=== PATIENT | male | born 1955 | race Caucasian/White ===

== ENCOUNTER 2017-12-19 12:20 | Emergency (ER) | payer OTHER ==
[2017-12-19 13:12] LABS: ABSOLUTE LYMPHOCYTES (AUTO) 0.9 10^3/uL (0.5-4.7); ABSOLUTE MONOCYTES (AUTO) 0.6 10^3/uL (0.1-1.4); ABSOLUTE NEUT (AUTO) 12.2 10^3/uL (1.7-8.2); BASOPHILS % (AUTO) 0.2 % (0-2); HEMATOCRIT 51.2 % (37.9-51.0); HEMOGLOBIN 17.3 g/dL (13.5-17.0); LYMPHOCYTES % (AUTO) 6.2 % (13-45); MEAN CORPUSCULAR HGB CONC 33.9 g/dL (32.0-36.0); MEAN CORPUSCULAR VOLUME 95 fl (80-97); MONOCYTES % (AUTO) 4.7 % (3-13); PLATELET COUNT 264 10^3/uL (150-450); RED BLOOD COUNT 5.41 10^6/uL (4.35-5.55); RED CELL DISTRIBUTION WIDTH 14.4 % (11.5-14.0); SEGMENTED NEUTROPHILS % (AUTO) 88.9 % (42-78); TOTAL CELLS COUNTED % (AUTO) 100 %; WHITE BLOOD COUNT 13.7 10^3/uL (4.0-10.5)
[2017-12-19] MEDS ORDERED: DIPH/PERTUSS(ACELL)/TETANUS VAC/PF 0.5 ML SYR (>=10YO) IM ONE (13:33)
--- NOTE | 2017-12-19 13:33 | ER Document Report ---
ED Blood Sugar Problem - General Chief Complaint: Low Blood Sugar Stated Complaint: BLOOD SUGAR PROBLEM Time Seen by Provider: 12/19/17 13:28 Information source: Patient Notes: 62-year-old male with past medical history as recorded who presents today being unresponsive according to the family and EMS. The patient's sister and called EMS. Patient is an insulin-dependent diabetic. He states he has been out of his test strips the last 3 days so has not been able to check his sugar. He states when he woke up this morning he did feel little diaphoretic but was unable to take his sugar. He ate some grits and did take his morning insulin. He then started to become slightly unresponsive with some snoring respirations according to family. EMS states when they provided 500 cc of D10 solution the patient became oriented 4. The patient denies any headache, nausea, vomiting, chest pain, weakness or numbness. He does state he fell and hit his head around 2 days ago. He denies loss of consciousness or vomiting. He denies any change in his medicines including his insulin regimen. TRAVEL OUTSIDE OF THE [place] IN LAST 30 DAYS: No - HPI Onset: Other - See above Onset/Duration: Sudden Quality of pain: No pain Severity: Mild Pain Level: 0 Associated symptoms: Other - See above Similar symptoms previously: No Recently seen / treated by doctor: No - Related Data Allergies/Adverse Reactions: No Known Allergies Allergy (Verified 12/19/17 12:35) Past Medical History - General Information source: Patient - Social History Smoking Status: Former Smoker Cigarette use (# per day): No Chew tobacco use (# tins/day): No Smoking Education Provided: No Frequency of alcohol use: None Drug Abuse: None Family History: Reviewed & Not Pertinent Patient has suicidal ideation: No Patient has homicidal ideation: No - Past Medical History Cardiac Medical History: Reports: Hx Hypertension Endocrine Medical History: Reports: Hx Diabetes Mellitus Type 2 Renal/ Medical History: Denies: Hx Peritoneal Dialysis Review of Systems - Review of Systems Constitutional: denies: Fever EENT: denies: Eye discharge, Nose discharge Cardiovascular: denies: Chest pain, Palpitations Respiratory: denies: Short of breath Gastrointestinal: denies: Vomiting Genitourinary: denies: Dysuria Musculoskeletal: denies: Leg swelling Skin: Other - no hives. denies: Rash Neurological/Psychological: Other - no slurred speech -: Yes All other systems reviewed and negative Physical Exam - Vital signs Vitals: Temp Pulse Resp BP Pulse Ox 97.6 F 62 18 139/77 H 96 12/19/17 12:12/19/17 12:12/19/17 12:12/19/17 12:12/19/17 12:25 Notes: Reviewed vital signs and nursing note as charted by RN. CONSTITUTIONAL: Alert and oriented and responds appropriately to questions. Well -appearing; well-nourished HEAD: Normocephalic; atraumatic EYES: PERRL; full extraocular range of motion. No nystagmus notedSee above ENT: Normal nose; no rhinorrhea; no carotid bruits NECK: Supple without meningismus; non-tender CARD: Regular rate and rhythm; no murmurs RESP: Normal chest excursion without splinting or tachypnea; breath sounds clear and equal bilaterally ABD/GI: Normal bowel sounds; non-distended; soft, non-tender BACK: The back appears normal and is non-tender to palpation EXT: Normal ROM in all joints; non-tender to palpation; abrasions to bilateral knees without tenderness with full range of motion, no edema SKIN: See above NEURO: CN II through XII are intact. 5 out of 5 bilateral upper and lower extremity strength with sensation intact to light touch PSYCH: The patient's mood and manner are appropriate. Grooming and personal hygiene are appropriate. Course - Re-evaluation Re-evalutation: 12/19/17 13:33 Given the history and physical examination we will order basic labs, cardiac labs, every hour Accu-Cheks, provide fluids, and given the recent fall obtain a CT scan of the head. We will update the patient's tetanus and clean and dressed the patient's abrasions to his knees. 12/19/17 13:37 EKG shows a heart of 58, normal sinus rhythm, left axis deviation, no obvious ST elevation or depression. 12/19/17 14:[address] imaging as recorded. We are still awaiting the troponin. We have fed the patient. Every hour Accu-Cheks are being performed. - Vital Signs Vital signs: Temp Pulse Resp BP Pulse Ox 97.6 F 62 18 139/77 H 96 12/19/17 12:25 12/19/17 12:25 12/19/17 12:25 12/19/17 12:25 12/19/17 12:25 - Laboratory Result Diagrams: 12/19/17 13:03 12/19/17 14:00 Laboratory results interpreted by me: 12/19/17 12/19/17 12/19/17 13:03 14:00 16:14 WBC 13.7 H Hgb 17.3 H Hct 51.2 H RDW 14.4 H Seg Neutrophils % 88.9 H Lymphocytes % 6.2 L Absolute Neutrophils 12.2 H BUN 29 H Est GFR (Non-Af Amer) 59 L POC Glucose 176 H Direct Bilirubin 0.5 H Discharge - Discharge Clinical Impression: Hypoglycemia Altered mental status, unspecified Qualifiers: Altered mental status type: unspecified Qualified Code(s): R41.82 - Altered mental status, unspecified Accidental fall Qualifiers: Encounter type: initial encounter Qualified Code(s): W19.XXXA - Unspecified fall, initial encounter Closed head injury Qualifiers: Encounter type: initial encounter Qualified Code(s): S09.90XA - Unspecified injury of head, initial encounter Condition: Good Disposition: HOME, SELF-CARE Additional Instructions: Come back immediately with any weakness or numbness, change in mental status, fevers or vomiting, chest pain, excessively high or low sugars, or any other acute problems. Please make sure that you check your sugars regularly and please follow-up with your primary care physician P Prescriptions: Blood Sugar Diagnostic [Glucose Test Strip] 1 each BID #60 strip Referrals: ELISSA JONES MD [Primary Care Provider] - Follow up as needed
--- NOTE | 2017-12-19 13:53 | RADIOLOGY REPORT (SQ) ---
EXAM DESCRIPTION: CT HEAD WITHOUT COMPLETED DATE/TIME: 12/19/2017 1:45 pm REASON FOR STUDY: 2, fall COMPARISON: None. TECHNIQUE: Axial images acquired through the brain without intravenous contrast. Images reviewed wi th bone, brain and subdural windows. Images stored on PACS. All CT scanners at this facility use dose modulation, iterative reconstruction, and/or weight based d osing when appropriate to reduce radiation dose to as low as reasonably achievable (ALARA). [facility]: Dose Right [facility]: CareDose [facility]: Dose Right [facility]: Teradose 4D [facility]: rubberit RADIATION DOSE: mGy. LIMITATIONS: None. FINDINGS: VENTRICLES: Normal size and contour. CEREBRUM: No masses. No hemorrhage. No midline shift. No evidence for acute infarction. Normal gra y/white matter differentiation. No areas of low density in the white matter. CEREBELLUM: No masses. No hemorrhage. No alteration of density. No evidence for acute infarction. EXTRAAXIAL SPACES: No fluid collections. No masses. ORBITS AND GLOBE: No intra- or extraconal masses. Normal contour of globe without masses. CALVARIUM: No fracture. PARANASAL SINUSES: No fluid or mucosal thickening. SOFT TISSUES: Partially calcified 2.2 CM soft tissue mass within the subcutaneous fat right posterior scalp seen on series 2, image 13. OTHER: No other significant finding. IMPRESSION: NO ACUTE INTRACRANIAL PROCESS OR FRACTURE. PARTIALLY CALCIFIED 2.2 CM SOFT TISSUE MASS WITHIN THE SUBCUTANEOUS FAT RIGHT SCALP. FINDINGS ARE NO NSPECIFIC HOWEVER MOST LIKELY REPRESENTS BENIGN NEOPLASTIC PROCESS. FOLLOW-UP SURGICAL CONSULTATION RECOMMENDED. EVIDENCE OF ACUTE STROKE: NO. COMMENT: Quality ID # [id number]: Final reports with documentation of one or more dose reduction techniques (e.g., Automated exposure control, adjustment of the mA and/or kV according to patient size, use of iterative reconstruction technique) TECHNICAL DOCUMENTATION: JOB ID: [id number] [employer]- All Rights Reserved Reading location - IP/workstation name: [email or web address]
[2017-12-19 14:37] LABS: ALANINE AMINOTRANSFERASE 44 U/L (21-72); ALBUMIN 3.9 g/dL (3.5-5.0); ALKALINE PHOSPHATASE 111 U/L (38-126); ANION GAP 15 (5-19); ASPARTATE AMINO TRANSFERASE 47 U/L (17-59); BILIRUBIN,DIRECT 0.5 mg/dL (0.0-0.4); BILIRUBIN,TOTAL 0.6 mg/dL (0.2-1.3); BLOOD UREA NITROGEN 29 mg/dL (7-20); CALCIUM 9.3 mg/dL (8.4-10.2); CARBON DIOXIDE 28 mmol/L (22-30); CHLORIDE 98 mmol/L (98-107); GLUCOSE 89 mg/dL (75-110); POTASSIUM 4.5 mmol/L (3.6-5.0); SODIUM 141.2 mmol/L (137-145); TOTAL PROTEIN 7.5 g/dL (6.3-8.2)
--- NOTE | 2017-12-19 16:07 | EKG REPORT ---
SEVERITY:- BORDERLINE ECG - SINUS RHYTHM IVCD : Confirmed by: Del Kennedy MD 19-Dec-2017 16:07:32
--- NOTE | 2017-12-19 16:17 | RADIOLOGY REPORT (SQ) ---
EXAM DESCRIPTION: PELVIS AP COMPLETED DATE/TIME: 12/19/2017 4:06 pm REASON FOR STUDY: 2, fall COMPARISON: None. NUMBER OF VIEWS: One view TECHNIQUE: AP Pelvis LIMITATIONS: None. FINDINGS: MINERALIZATION: Normal. HIPS: No acute fracture or dislocation. No worrisome bone lesions. PELVIS AND SACRUM: No acute fracture or dislocation. No worrisome bone lesions. PUBIS AND ISCHIUM: No acute fracture. LOWER LUMBAR SPINE: No significant findings as visualized. SOFT TISSUES: No findings. OTHER: No other significant finding. IMPRESSION: NEGATIVE STUDY OF THE PELVIS. TECHNICAL DOCUMENTATION: JOB ID: [id number] [email or web address]- All Rights Reserved Reading location - IP/workstation name: [email or web address]
--- NOTE | 2017-12-19 16:18 | RADIOLOGY REPORT (SQ) ---
EXAM DESCRIPTION: FEMUR LEFT COMPLETED DATE/TIME: 12/19/2017 4:06 pm REASON FOR STUDY: 2, fall COMPARISON: None. NUMBER OF VIEWS: Two views. TECHNIQUE: Two radiographic images acquired of the left femur to include hip and knee in at least on e projection. LIMITATIONS: None. FINDINGS: MINERALIZATION: Normal. BONES: No acute fracture. No worrisome bone lesions. Degenerative changes of the knee. SOFT TISSUES: No obvious swelling or foreign body. OTHER: No other significant finding. IMPRESSION: No acute fracture. TECHNICAL DOCUMENTATION: JOB ID: [id number] [employer]- All Rights Reserved Reading location - IP/workstation name: [email or web address]
[2017-12-19 18:08] VITALS: BP 112/59
== END 2017-12-19 18:00 | disposition home or self-care (01) ==
LOC: ER 12:20
DX: S09.90XA Unspecified injury of head, initial encounter (principal); R41.82 Altered mental status, unspecified; E11.649 Type 2 diabetes mellitus with hypoglycemia without coma; Z79.4 Long term (current) use of insulin; W19.XXXA Unspecified fall, initial encounter; Z87.891 Personal history of nicotine dependence
CPT/HCPCS: 36415; 70450; 72170; 80053; 82962; 84484; 85025; 90471; 90715; 93005; 93010; 99284

== ENCOUNTER 2020-09-08 21:14 | Inpatient (IN) | payer OTHER, MEDICARE ==
[2020-09-08 22:17] LABS: MEAN CORPUSCULAR HEMOGLOBIN 33.4 pg (27.0-33.4); MEAN CORPUSCULAR HGB CONC 33.3 g/dL (32.0-36.0); MEAN CORPUSCULAR VOLUME 100 fl (80-97); PLATELET COUNT 229 10^3/uL (150-450); RED BLOOD COUNT 5.39 10^6/uL (4.35-5.55); RED CELL DISTRIBUTION WIDTH 14.7 % (11.5-14.0); WHITE BLOOD COUNT 13.8 10^3/uL (4.0-10.5)
--- NOTE | 2020-09-08 22:33 | RADIOLOGY REPORT (SQ) ---
EXAM DESCRIPTION: XR CHEST 1 VIEW COMPLETED DATE/TME: 09/08/2020 22:15 CLINICAL HISTORY: 65 years, Male, SOB, chest pain COMPARISON: None. NUMBER OF VIEWS: 1 TECHNIQUE: Portable chest LIMITATIONS: None. FINDINGS: Cardiac megaly. Mild prominence of the pulmonary interstitium with small bibasilar effusions and adjacent airspace opacities. No pneumothorax. IMPRESSION: Cardiomegaly with mild interstitial prominence, small bibasilar effusions and adjacent airspace opacities. copyright 2010 [employer]- All Rights Reserved
[2020-09-08 22:36] LABS: ALBUMIN 4.2 g/dL (3.5-5.0); ALKALINE PHOSPHATASE 175 U/L (38-126); ANION GAP 7 (5-19); ASPARTATE AMINO TRANSFERASE 42 U/L (17-59); BILIRUBIN,DIRECT 0.3 mg/dL (0.0-0.4); BILIRUBIN,TOTAL 0.7 mg/dL (0.2-1.3); BLOOD UREA NITROGEN 29 mg/dL (7-20); CALCIUM 9.2 mg/dL (8.4-10.2); CARBON DIOXIDE 39 mmol/L (22-30); CHLORIDE 88 mmol/L (98-107); CREATINE KINASE 37 U/L (55-170); GLUCOSE 180 mg/dL (75-110); POTASSIUM 4.3 mmol/L (3.6-5.0); TOTAL PROTEIN 8.8 g/dL (6.3-8.2)
[2020-09-08 22:49] LABS: ABSOLUTE LYMPHOCYTES# (MANUAL) 3.6 10^3/uL (0.5-4.7); ABSOLUTE MONOCYTES # (MANUAL) 1.1 10^3/uL (0.1-1.4); BASOPHILS % (MANUAL) 0 % (0-2); EOSINOPHILS % (MANUAL) 1 % (0-6); LYMPHOCYTES % (MANUAL) 26 % (13-45); MONOCYTES % (MANUAL) 8 % (3-13); NUCLEATED RED BLOOD CELLS 2 /100 WBC (0); SEGMENTED NEUTROPHILS % (MAN) 65 % (42-78); TOTAL CELLS COUNTED 100
[2020-09-08 22:52] LABS: ANISOCYTOSIS SLIGHT; PLATELET COMMENT ADEQUATE; POLYCHROMASIA SLIGHT; TEAR DROP CELLS SLIGHT
--- NOTE | 2020-09-08 22:55 | ER Document Report ---
ED General - General Chief Complaint: Shortness Of Breath Stated Complaint: SHORTNESS OF BREATH Time Seen by Provider: 09/08/20 22:06 TRAVEL OUTSIDE OF THE [place] IN LAST 30 DAYS: No - HPI Notes: Patient is a 65-year-old male presents emergency department for evaluation of chest pain shortness of breath. Is been ongoing for the last several days. He denies any fevers or chills. No nausea or vomiting. He describes the chest pain as heaviness. He states he has been taking his medications as prescribed. He denies any chest heaviness at this time. He states that he cannot tell me anything that brings on this chest heaviness, nothing that seems to make it go away. It last several minutes when it comes on. It does not radiate from his central substernal region. He states he has had waxing and waning edema over the last several weeks. He states that he has to sleep at a 45 degree angle secondary to his breathing. - Related Data Allergies/Adverse Reactions: No Known Allergies Allergy (Verified 12/19/17 12:35) Past Medical History - General Information source: Patient - Social History Smoking Status: Former Smoker Family History: Reviewed & Not Pertinent Patient has homicidal ideation: No - Past Medical History Cardiac Medical History: Reports: Hx Hypertension Endocrine Medical History: Reports: Hx Diabetes Mellitus Type 2 Renal/ Medical History: Denies: Hx Peritoneal Dialysis Review of Systems - Review of Systems Constitutional: Weakness EENT: No symptoms reported Cardiovascular: See HPI Respiratory: See HPI Gastrointestinal: No symptoms reported Genitourinary: No symptoms reported Musculoskeletal: No symptoms reported Skin: No symptoms reported Neurological/Psychological: No symptoms reported -: Yes All other systems reviewed and negative Physical Exam - Vital signs Vitals: Pulse Ox 98 09/08/20 21:22 - Notes Notes: This is a morbidly obese 65-year-old male who appears his stated age in a moderate amount of distress. He is tachypneic and mildly diaphoretic. He shows increased work of breathing. Vital signs reviewed, please refer to chart. Head is normocephalic, atraumatic. Pupils equal round, reactive to light. Neck is supple without meningismus. Heart is regular rate and rhythm. Lungs reveal diminished breath sounds without wheezes, rales, rhonchi. Abdomen is obese, nontender, normoactive bowel sounds throughout. Extremities without cyanosis, clubbing. 3+ pretibial pitting edema. Posterior calves are nontender. Peripheral pulses are equal. Skin is warm and dry, chronic skin changes noted to bilateral lower extremities. Patient is drowsy and slow to answer questions, but oriented x3. No gross facial asymmetry. He moves all 4 extremities spontaneously. Course - Re-evaluation Re-evalutation: 09/08/20 22:53 Patient presents emergency department for evaluation. EMS found him to be markedly hypoxic. He was placed on a nonrebreather. Here in the emergency department he was showing increased work of breathing, he is currently oxygenating well on nonrebreather. Based on his size and work of breathing, however, and my concern for CO2 retention, decision was made to start the patient on BiPAP. This is been instituted. Laboratory investigations and imaging is ordered. Patient is currently stable, we will continue to monitor. 09/09/20 00:05 Initial ABG was clotted. I did perform repeat ABG on the left upper extremity. Blood return was free-flowing but dark. I am unsure as to whether or not this is mixed, please see separate procedure note. 09/09/20 00:49 ABG showed significant acidosis with hypercapnia. Clinically, patient looks significantly improved on the BiPAP. He is able to converse, looks less diaphoretic, less drowsy. Given his significant edema and the appearance of his chest x-ray, clinically to me he looks like acute heart failure. I am going to continue to trial the BiPAP. Patient will be given Lasix and started on a nitroglycerin drip. We will continue to monitor. 09/09/20 02:01 Patient is significantly acidotic, but looks continually improved on the BiPAP. Decision was made to repeat blood gas. This was performed again by this provider. Examination of the left upper extremity was performed. Radial and ulnar pulses were palpated. Lyle test was performed. Using ultrasound, the left radial artery was cannulated without difficulty. ABG sent. Patient tolerated well without complication. 09/09/20 02:43 Patient's ABG does show mild improvement of his pH, significant improvement of his CO2 retention. I have contacted medicine for admission. 09/09/20 02:55 Dr. Simental and I discussed this patient. He is concerned that his presentation necessitates an ICU admission. I spoken with nurse practitioner Floyd Martinez, he will come down and evaluate the patient. 09/09/20 03:17 OPHELIA Martinez will admit the patient. I will add blood cultures and antibiotics for this patient. - Vital Signs Vital signs: Temp Pulse Resp BP Pulse Ox 98.8 F 18 115/66 96 09/08/20 23:00 09/09/20 02:31 09/09/20 02:31 09/09/20 02:31 - Laboratory Result Diagrams: 09/08/20 21:48 09/08/20 21:48 Laboratory results interpreted by me: 09/08/20 09/08/20 09/08/20 21:48 21:48 21:48 WBC 13.8 H Hgb 18.0 H Hct 54.0 H MCV 100 H RDW 14.7 H Abs Neuts (Manual) 9.0 H Carbonic Acid ABG pH ABG pCO2 ABG HCO3 ABG Total CO2 ABG O2 Saturation Sodium 134.1 L Chloride 88 L Carbon Dioxide 39 H BUN 29 H Est GFR (MDRD) Non-Af 58 L Glucose 180 H ALT 61 H Alkaline Phosphatase 175 H Creatine Kinase 37 L NT-Pro-B Natriuret Pep 1510 H Total Protein 8.8 H Urine Protein Urine Glucose (UA) Urine Blood Urine Urobilinogen Urine Ascorbic Acid 09/09/20 09/09/20 09/09/20 00:02 00:53 02:01 WBC Hgb Hct MCV RDW Abs Neuts (Manual) Carbonic Acid 4.18 H 3.08 H ABG pH 7.12 L* 7.13 L* ABG pCO2 138.9 H* 102.2 H* ABG HCO3 44.2 H 33.5 H ABG Total CO2 48.5 H 36.7 H ABG O2 Saturation 93.8 L 91.1 L Sodium Chloride Carbon Dioxide BUN Est GFR (MDRD) Non-Af Glucose ALT Alkaline Phosphatase Creatine Kinase NT-Pro-B Natriuret Pep Total Protein Urine Protein >=500 H Urine Glucose (UA) 50 H Urine Blood SMALL H Urine Urobilinogen 4.0 H Urine Ascorbic Acid 20 H - Diagnostic Test Radiology reviewed: Image reviewed, Reports reviewed Radiology results interpreted by me: 09/08/20 22:54 Chest X-Ray 09/08/20 21:55 IMPRESSION: Cardiomegaly with mild interstitial prominence, small bibasilar effusions and adjacent airspace opacities. copyright 2010 [employer]- All Rights Reserved - EKG Interpretation by Me Additional EKG results interpreted by me: 09/08/20 22:54 Sinus mechanism with a rate of 88 bpm, ventricular bigeminy noted. Left axis deviation. IVCD. Nonspecific ST changes, but no acute ST elevation concerning for infarction. No studies available for comparison. Procedures - Additional Procedures ABG Time performed: 00:00 Additional Procedures: ABG Notes: 09/09/20 00:05 Lyle test performed left upper extremity, good collateral flow verified. Using both ultrasound and tactile sensation, the area was cleansed with an alcohol pad, artery was cannulated, ABG was obtained. Bandage was placed, no significant bleeding following. Cap refill is normal. ABG sent for evaluation. Critical Care Note - Critical Care Note Total time excluding time spent on procedures (mins): 45 Discharge - Discharge Clinical Impression: Bigeminy Respiratory failure Qualifiers: Chronicity: unspecified Respiratory failure complication: hypoxia and hypercapnia Qualified Code(s): J96.91 - Respiratory failure, unspecified with hypoxia Congestive heart failure Qualifiers: Heart failure chronicity: acute Condition: Stable Disposition: ADMITTED INPATIENT Admitting Provider: Matt ([employer]) Unit Admitted: ICU
[2020-09-08 23:32] LABS: TROPONIN I 0.019 ng/mL
--- NOTE | 2020-09-08 23:58 | EKG REPORT ---
SEVERITY:- ABNORMAL ECG - SINUS RHYTHM VENTRICULAR BIGEMINY MINIMAL ST DEPRESSION, LATERAL LEADS : Confirmed by: Arcadio Friend 08-Sep-2020 23:57:48
[2020-09-09 00:27] LABS: ARTERIAL BLOOD BASE EXCESS 6.8 mmol/L; ARTERIAL BLOOD H2CO3 4.18 mmol/L (1.05-1.35); ARTERIAL BLOOD HCO3 44.2 mmol/L (20-24); ARTERIAL BLOOD O2 SATURATION 93.8 % (94-98); ARTERIAL BLOOD PO2 95.7 mmHg (80-100); ARTERIAL BLOOD TOTAL CO2 48.5 mmol/L (23-27)
[2020-09-09 00:42] LABS: ARTERIAL BLOOD FIO2 60%; ARTERIAL BLOOD PCO2 138.9 mmHg (35-45); ARTERIAL BLOOD PH 7.12 (7.35-7.45)
[2020-09-09] MEDS ORDERED: NITROGLYCERIN/D5W 50 MG/250 ML RTUINJ IV PRN (00:48)
[2020-09-09] MEDS ORDERED: FUROSEMIDE INJ/PF 40 MG/4 ML SDV IV ONE (00:48)
[2020-09-09 01:07] LABS: APPEARANCE,URINE SLIGHTLY-CLOUDY; BILIRUBIN,URINE NEGATIVE (NEGATIVE); COLOR,URINE AMBER; GLUCOSE, URINE 50 mg/dL (NEGATIVE); KETONES,URINE NEGATIVE (NEGATIVE); LEUKOCYTE ESTERASE,URINE NEGATIVE (NEGATIVE); NITRITE,URINE NEGATIVE (NEGATIVE); PROTEIN,URINE >=500 mg/dL (NEGATIVE); URINE SPECIFIC GRAVITY 1.029
[2020-09-09 02:31] LABS: ARTERIAL BLOOD BASE EXCESS -0.2 mmol/L; ARTERIAL BLOOD H2CO3 3.08 mmol/L (1.05-1.35); ARTERIAL BLOOD HCO3 33.5 mmol/L (20-24); ARTERIAL BLOOD O2 SATURATION 91.1 % (94-98); ARTERIAL BLOOD PO2 80.5 mmHg (80-100); ARTERIAL BLOOD TOTAL CO2 36.7 mmol/L (23-27)
[2020-09-09 02:38] LABS: ARTERIAL BLOOD FIO2 60%; ARTERIAL BLOOD PCO2 102.2 mmHg (35-45); ARTERIAL BLOOD PH 7.13 (7.35-7.45)
[2020-09-09] MEDS ORDERED: CEFTRIAXONE 1 GM/D5W RTU 1 GM/50 ML RTUPB IV ONE (03:17)
[2020-09-09] MEDS ORDERED: AZITHROMYCIN INJ 500 MG VIAL IV ONE (03:18)
--- NOTE | 2020-09-09 03:27 | CRITICAL CARE ADMISSION REPORT ---
HPI Date:: 09/09/20 Time:: 03:15 Reason for ICU Reason:: Acute Respiratory Failure Admission Date/Time & PCP: Admission Date/Time: Primary Care Provider: PA MASON HPI: Pt is a pleasant 65-year-old male who presents to the ED with c/o CP and SOB for the last several days. Question fever history. no n/v. He c/o increased BLE edema. He states that he has to sleep at a 45 degree angle secondary to his breathing The pt was evaluated by ems and found to be hypoxic and placed on a NRB and subsequently BiPap. His initial pCo2 was markedly elevated and subsequent ones were improved on BiPap. Throughout his ED stay he remained awake and alert. - Diagnosis/Plan (1) Respiratory failure Qualifiers: Chronicity: unspecified Respiratory failure complication: hypoxia and hypercapnia Qualified Code(s): J96.91 - Respiratory failure, unspecified with hypoxia; J96.92 - Respiratory failure, unspecified with hypercapnia Is this a current diagnosis for this admission?: Yes Plan: Could be multifactorial. Would r/o COVID-19. R/o pneumonia-bld cx's, antibx. R/o COPD exacerbation- duonebs, steroids. R/o CHF- evidenced by the same on CXR, but low BNP. Rsponded to lasix with 800UOP and add ntg. At risk for needing endotracheal intubation, especially given elevated pC02, but clinically awake, alert, oriented fully. Will follow closely. Past Medical History Cardiac Medical History: Reports: Hypertension Pulmonary Medical History: Reports: Other - Smoking hx, sleeps in a chair at night. Endocrine Medical History: Reports: Diabetes Mellitus Type 2 Social/Family History - Social History Smoking Status: Former Smoker - Medication/Allergies Home Medications: Blood Sugar Diagnostic [Glucose Test Strip] 1 each MC BID #60 strip 12/19/17 Allergies/Adverse Reactions: No Known Allergies Allergy (Verified 12/19/17 12:35) Review of Systems All systems: reviewed and no additional remarkable complaints except as stated Constitutional: PRESENT: fever(s) Cardiovascular: PRESENT: edema, orthropnea Physical Exam Vital Signs: Temp Pulse Resp BP Pulse Ox 98.8 F 18 115/66 96 09/08/20 23:00 09/09/20 02:31 09/09/20 02:31 09/09/20 02:31 Weight/Height Height 5 ft 7 in General appearance: PRESENT: no acute distress, morbidly obese Head exam: PRESENT: atraumatic, normocephalic Eye exam: PRESENT: conjunctival injection Ear exam: PRESENT: normal external ear exam Mouth exam: PRESENT: dry mucosa Respiratory exam: PRESENT: decreased breath sounds. ABSENT: prolonged expiratory phas, tachypnea, unlabored Cardiovascular exam: PRESENT: irregular rhythm Pulses: PRESENT: normal radial pulses GI/Abdominal exam: PRESENT: distended, hernia, soft Extremities exam: PRESENT: pedal edema, +2 edema Neurological exam: PRESENT: alert, awake, oriented to person, oriented to place, oriented to time Skin exam: PRESENT: vesicles Laboratory/Radiographs Laboratory Results: 09/08/20 21:48 09/08/20 21:48 09/08/20 09/08/20 09/08/20 21:48 21:48 22:45 WBC 13.8 H RBC 5.39 Hgb 18.0 H Hct 54.0 H MCV 100 H MCH 33.4 MCHC 33.3 RDW 14.7 H Plt Count 229 Seg Neutrophils % Not Reportable Carbonic Acid Cancelled HCO3/H2CO3 Ratio Cancelled ABG pH Cancelled ABG pCO2 Cancelled ABG pO2 Cancelled ABG HCO3 Cancelled ABG O2 Saturation Cancelled ABG Base Excess Cancelled FiO2 Cancelled Sodium 134.1 L Potassium 4.3 Chloride 88 L Carbon Dioxide 39 H Anion Gap 7 BUN 29 H Creatinine 1.25 Est GFR ( Amer) > 60 Glucose 180 H Calcium 9.2 Total Bilirubin 0.7 AST 42 Alkaline Phosphatase 175 H Total Protein 8.8 H Albumin 4.2 Urine Color Urine Appearance Urine pH Ur Specific Alliance Urine Protein Urine Glucose (UA) Urine Ketones Urine Blood Urine Nitrite Ur Leukocyte Esterase Urine WBC (Auto) Urine RBC (Auto) 09/09/20 09/09/20 09/09/20 00:02 00:53 02:01 WBC RBC Hgb Hct MCV MCH MCHC RDW Plt Count Seg Neutrophils % Carbonic Acid 4.18 H 3.08 H HCO3/H2CO3 Ratio 10:1 10:1 ABG pH 7.12 L* 7.13 L* ABG pCO2 138.9 H* 102.2 H* ABG pO2 95.7 80.5 ABG HCO3 44.2 H 33.5 H ABG O2 Saturation 93.8 L 91.1 L ABG Base Excess 6.8 -0.2 FiO2 60% 60% Sodium Potassium Chloride Carbon Dioxide Anion Gap BUN Creatinine Est GFR ( Amer) Glucose Calcium Total Bilirubin AST Alkaline Phosphatase Total Protein Albumin Urine Color RAFA Urine Appearance SLIGHTLY-CLOUDY Urine pH 5.0 Ur Specific Alliance 1.029 Urine Protein >=500 H Urine Glucose (UA) 50 H Urine Ketones NEGATIVE Urine Blood SMALL H Urine Nitrite NEGATIVE Ur Leukocyte Esterase NEGATIVE Urine WBC (Auto) 10 Urine RBC (Auto) 1 09/08/20 09/08/20 21:48 21:48 Creatine Kinase 37 L Troponin I 0.019 NT-Pro-B Natriuret Pep 1510 H Impressions: Chest X-Ray 09/08/20 21:55 IMPRESSION: Cardiomegaly with mild interstitial prominence, small bibasilar effusions and adjacent airspace opacities. copyright 2011 [employer]- All Rights Reserved Critical Time Critical Time (minutes): 35 -: The care of a critically ill patient is dynamic. This note represents a static moment in the admission process. Orders and treatments may be given simultaneously and urgently, and time is not bilingual sales representative of the treatment process. This patient requires Critical Care secondary to life threatening organ or limb dysfunction. Without Critical Care services, the patient is at risk for increased mortality and morbidity.
[2020-09-09] MEDS: IPRATROPIUM/ALBUTEROL 0.5-2.5 MG/3 ML AMPUL NEB SCH ×5 (03:42→19:48)
[2020-09-09] MEDS: DEXAMETHASONE SOD PHOSPHATE INJ 4 MG/1 ML VIAL IV SCH ×4 (07:03→23:57)
[2020-09-09] MEDS: PANTOPRAZOLE SODIUM 40 MG TABLET.DR PO SCH (07:03)
[2020-09-09] MEDS: FUROSEMIDE INJ/PF 40 MG/4 ML SDV IV SCH ×2 (07:03→18:25)
[2020-09-09 08:50] LABS: ARTERIAL BLOOD FIO2 60%; ARTERIAL BLOOD H2CO3 3.96 mmol/L (1.05-1.35); ARTERIAL BLOOD HCO3 46.6 mmol/L (20-24); ARTERIAL BLOOD O2 SATURATION 91.1 % (94-98); ARTERIAL BLOOD PO2 80.1 mmHg (80-100); ARTERIAL BLOOD TOTAL CO2 50.7 mmol/L (23-27)
[2020-09-09 08:51] LABS: ARTERIAL BLOOD PCO2 131.7 mmHg (35-45); ARTERIAL BLOOD PH 7.17 (7.35-7.45)
--- NOTE | 2020-09-09 10:55 | PDOC CRITICAL CARE PROG REPORT ---
General Date:: 09/09/20 ICU Day:: 2 Hospital Day:: 2 Resuscitation Status: Full Code Events in the past 12 to 24 Hours:: The patient remans on BIPAP. I have turned down his 02 to 30%. I have increased his IPAP given his persistently elevated PaCO2. Dedsp[ite the high PacCO2 thepatient remains responsive and appropriate. If his mentation worsens or PacO2 continues to rise we will need to intyubate him. Reason for ICU Addmission:: Acute Respiratory Failure Physical Exam Vital Signs: Temp Pulse Resp BP Pulse Ox 97.9 F 68 22 H 130/82 H 91 L 09/09/20 08:19 09/09/20 08:39 09/09/20 10:33 09/09/20 10:33 09/09/20 10:33 Intake & Output 09/08/20 09/09/20 09/10/20 06:59 06:59 06:59 Output Total 400 Balance -400 Weight 166.2 kg Weight/Height Weight 166.2 kg Height 5 ft 6 in Laboratory/Radiographs Laboratory Results: 09/08/20 21:48 09/08/20 21:48 09/08/20 09/08/20 09/08/20 21:48 21:48 22:45 WBC 13.8 H RBC 5.39 Hgb 18.0 H Hct 54.0 H MCV 100 H MCH 33.4 MCHC 33.3 RDW 14.7 H Plt Count 229 Seg Neutrophils % Not Reportable Carbonic Acid Cancelled HCO3/H2CO3 Ratio Cancelled ABG pH Cancelled ABG pCO2 Cancelled ABG pO2 Cancelled ABG HCO3 Cancelled ABG O2 Saturation Cancelled ABG Base Excess Cancelled FiO2 Cancelled Sodium 134.1 L Potassium 4.3 Chloride 88 L Carbon Dioxide 39 H Anion Gap 7 BUN 29 H Creatinine 1.25 Est GFR ( Amer) > 60 Glucose 180 H Calcium 9.2 Total Bilirubin 0.7 AST 42 Alkaline Phosphatase 175 H Total Protein 8.8 H Albumin 4.2 Urine Color Urine Appearance Urine pH Ur Specific [place] Urine Protein Urine Glucose (UA) Urine Ketones Urine Blood Urine Nitrite Ur Leukocyte Esterase Urine WBC (Auto) Urine RBC (Auto) 09/09/20 09/09/20 09/09/20 00:02 00:53 02:01 WBC RBC Hgb Hct MCV MCH MCHC RDW Plt Count Seg Neutrophils % Carbonic Acid 4.18 H 3.08 H HCO3/H2CO3 Ratio 10:1 10:1 ABG pH 7.12 L* 7.13 L* ABG pCO2 138.9 H* 102.2 H* ABG pO2 95.7 80.5 ABG HCO3 44.2 H 33.5 H ABG O2 Saturation 93.8 L 91.1 L ABG Base Excess 6.8 -0.2 FiO2 60% 60% Sodium Potassium Chloride Carbon Dioxide Anion Gap BUN Creatinine Est GFR ( Amer) Glucose Calcium Total Bilirubin AST Alkaline Phosphatase Total Protein Albumin Urine Color RAFA Urine Appearance SLIGHTLY-CLOUDY Urine pH 5.0 Ur Specific [place] 1.029 Urine Protein >=500 H Urine Glucose (UA) 50 H Urine Ketones NEGATIVE Urine Blood SMALL H Urine Nitrite NEGATIVE Ur Leukocyte Esterase NEGATIVE Urine WBC (Auto) 10 Urine RBC (Auto) 1 09/09/20 08:05 WBC RBC Hgb Hct MCV MCH MCHC RDW Plt Count Seg Neutrophils % Carbonic Acid 3.96 H HCO3/H2CO3 Ratio 11:1 ABG pH 7.17 L* ABG pCO2 131.7 H* ABG pO2 80.1 ABG HCO3 46.6 H ABG O2 Saturation 91.1 L ABG Base Excess 10.0 FiO2 60% Sodium Potassium Chloride Carbon Dioxide Anion Gap BUN Creatinine Est GFR ( Amer) Glucose Calcium Total Bilirubin AST Alkaline Phosphatase Total Protein Albumin Urine Color Urine Appearance Urine pH Ur Specific [place] Urine Protein Urine Glucose (UA) Urine Ketones Urine Blood Urine Nitrite Ur Leukocyte Esterase Urine WBC (Auto) Urine RBC (Auto) 09/08/20 09/08/20 21:48 21:48 Creatine Kinase 37 L Troponin I 0.019 NT-Pro-B Natriuret Pep 1510 H Impressions: Chest X-Ray 09/08/20 21:55 IMPRESSION: Cardiomegaly with mild interstitial prominence, small bibasilar effusions and adjacent airspace opacities. copyright 2011 [employer]- All Rights Reserved Assessment and Plan - Diagnosis (1) Respiratory failure Qualifiers: Chronicity: unspecified Respiratory failure complication: hypoxia and hypercapnia Qualified Code(s): J96.91 - Respiratory failure, unspecified with hypoxia; J96.92 - Respiratory failure, unspecified with hypercapnia Is this a current diagnosis for this admission?: Yes Plan: The patient has what appears to be acute on chronic hypercarbic, hypoxemic resp iratory failure. He is on BIPAP. Will be repeating ABG to keep tabs on him. He had an elevbated WBC and was started empirically on broad spectrum abx therapy. Critical Time Critical Time (minutes): 40 Level of Care: ICU Anticipated discharge: Home Anticipated DC Timeframe: within 72 hours -: 1. The care of a critical patient is a dynamic process. This note is a international representative synopsis but static in nature. The timeframe for treatments given in order is not necessarily the actual time these treatments may have been done. 2. This patient requires critical care secondary to ongoing requirements for therapy not offered or safe outside the critical care environment. Transfer to a lower level of care will result in altered life or limb morbidity and mortality. 3. Multidisciplinary rounds completed. 4. ABCDE bundle addressed.
[2020-09-09] MEDS: ENOXAPARIN SODIUM INJ 40 MG/0.4 ML DISP.SYRIN SUBCUT SCH (11:53)
[2020-09-09 15:32] LABS: ARTERIAL BLOOD BASE EXCESS 14.3 mmol/L; ARTERIAL BLOOD FIO2 40%; ARTERIAL BLOOD H2CO3 3.61 mmol/L (1.05-1.35); ARTERIAL BLOOD HCO3 49.5 mmol/L (20-24); ARTERIAL BLOOD O2 SATURATION 79.2 % (94-98); ARTERIAL BLOOD PH 7.23 (7.35-7.45); ARTERIAL BLOOD PO2 54.3 mmHg (80-100); ARTERIAL BLOOD TOTAL CO2 53.2 mmol/L (23-27)
[2020-09-09 15:37] LABS: ARTERIAL BLOOD PCO2 119.9 mmHg (35-45)
[2020-09-09] MEDS: AZITHROMYCIN 500 MG in DEXTROSE 5%-WATER 250 ML IV SCH (22:35)
[2020-09-09] MEDS: CEFTRIAXONE 1 GM/D5W RTU 1 GM/50 ML RTUPB IV SCH (22:36)
[2020-09-10] MEDS: IPRATROPIUM/ALBUTEROL 0.5-2.5 MG/3 ML AMPUL NEB SCH ×6 (00:44→20:36)
[2020-09-10] MEDS: DEXAMETHASONE SOD PHOSPHATE INJ 4 MG/1 ML VIAL IV SCH ×2 (05:02→11:12)
[2020-09-10] MEDS: PANTOPRAZOLE SODIUM 40 MG TABLET.DR PO SCH (05:02)
[2020-09-10] MEDS: FUROSEMIDE INJ/PF 40 MG/4 ML SDV IV SCH ×2 (05:02→18:54)
[2020-09-10 05:13] LABS: ABSOLUTE LYMPHOCYTES (AUTO) 0.9 10^3/uL (0.5-4.7); ABSOLUTE MONOCYTES (AUTO) 0.4 10^3/uL (0.1-1.4); ABSOLUTE NEUT (AUTO) 7.7 10^3/uL (1.7-8.2); BASOPHILS % (AUTO) 0.3 % (0-2); EOSINOPHILS % (AUTO) 0.1 % (0-6); HEMATOCRIT 51.7 % (37.9-51.0); HEMOGLOBIN 16.9 g/dL (13.5-17.0); MEAN CORPUSCULAR HEMOGLOBIN 32.5 pg (27.0-33.4); MEAN CORPUSCULAR HGB CONC 32.7 g/dL (32.0-36.0); MEAN CORPUSCULAR VOLUME 99 fl (80-97); MONOCYTES % (AUTO) 4.4 % (3-13); PLATELET COUNT 166 10^3/uL (150-450); RED BLOOD COUNT 5.21 10^6/uL (4.35-5.55); RED CELL DISTRIBUTION WIDTH 14.4 % (11.5-14.0); SEGMENTED NEUTROPHILS % (AUTO) 85.2 % (42-78); TOTAL CELLS COUNTED % (AUTO) 100 %
[2020-09-10 05:22] LABS: BLOOD UREA NITROGEN 36 mg/dL (7-20); CALCIUM 8.6 mg/dL (8.4-10.2); CHLORIDE 85 mmol/L (98-107); GLUCOSE 185 mg/dL (75-110); POTASSIUM 4.5 mmol/L (3.6-5.0)
[2020-09-10 05:42] LABS: PHOSPHORUS 3.8 mg/dL (2.5-4.5)
[2020-09-10 05:44] LABS: ANION GAP 8 (5-19)
[2020-09-10 05:47] LABS: CARBON DIOXIDE 42 mmol/L (22-30)
--- NOTE | 2020-09-10 08:16 | PDOC CRITICAL CARE PROG REPORT ---
General Date:: 09/10/20 ICU Day:: 3 Hospital Day:: 3 Resuscitation Status: Full Code Events in the past 12 to 24 Hours:: 09/09 The patient remans on BIPAP. I have turned down his 02 to 30%. I have increased his IPAP given his persistently elevated PaCO2. Despite the high PaCO2 the patient remains responsive and appropriate. If his mentation worsens or PacO2 continues to rise we will need to intubate him. 09/10 The patient is more awake today. Repeat ABG is pending. I leonelkendalelin thepatient will likely be able to move out of the ICU shortly. Reason for ICU Addmission:: Acute Respiratory Failure Physical Exam Vital Signs: Temp Pulse Resp BP Pulse Ox 98.1 F 59 L 21 H 125/70 98 09/10/20 02:00 09/10/20 04:59 09/10/20 06:01 09/10/20 06:00 09/10/20 06:01 Intake & Output 09/09/20 09/10/20 09/11/20 06:59 06:59 06:59 Intake Total 314 Output Total 2715 Balance -2401 Weight 166.2 kg 166 kg Weight/Height Weight 166 kg Height 5 ft 6 in General appearance: PRESENT: no acute distress Head exam: PRESENT: atraumatic, normocephalic Ear exam: PRESENT: normal external ear exam Respiratory exam: ABSENT: accessory muscle use Pulses: PRESENT: normal dorsalis pedis pul GI/Abdominal exam: PRESENT: soft. ABSENT: ascites, tenderness Extremities exam: ABSENT: calf tenderness Neurological exam: PRESENT: alert Psychiatric exam: ABSENT: agitated Laboratory/Radiographs Laboratory Results: 09/10/20 04:23 09/10/20 04:23 09/09/20 09/09/20 09/10/20 08:05 15:10 04:23 WBC 9.0 RBC 5.21 Hgb 16.9 Hct 51.7 H MCV 99 H MCH 32.5 MCHC 32.7 RDW 14.4 H Plt Count 166 Seg Neutrophils % 85.2 H Carbonic Acid 3.96 H 3.61 H HCO3/H2CO3 Ratio 11:1 13:1 ABG pH 7.17 L* 7.23 L ABG pCO2 131.7 H* 119.9 H* ABG pO2 80.1 54.3 L ABG HCO3 46.6 H 49.5 H ABG O2 Saturation 91.1 L 79.2 L ABG Base Excess 10.0 14.3 FiO2 60% 40% Sodium Potassium Chloride Carbon Dioxide Anion Gap BUN Creatinine Est GFR ( Amer) Glucose Calcium Ionized Calcium Mei Phosphorus Magnesium 09/10/20 09/10/20 09/10/20 04:23 04:23 04:23 WBC RBC Hgb Hct MCV MCH MCHC RDW Plt Count Seg Neutrophils % Carbonic Acid HCO3/H2CO3 Ratio ABG pH ABG pCO2 ABG pO2 ABG HCO3 ABG O2 Saturation ABG Base Excess FiO2 Sodium 135.1 L Potassium 4.5 Chloride 85 L Carbon Dioxide 42 H* Anion Gap 8 BUN 36 H Creatinine 1.22 Est GFR ( Amer) > 60 Glucose 185 H Calcium 8.6 Ionized Calcium Mei Cancelled Phosphorus 3.8 Magnesium 2.0 09/08/20 09/08/20 09/10/20 21:48 21:48 04:23 Creatine Kinase 37 L Troponin I 0.019 NT-Pro-B Natriuret Pep 1510 H 854 H Impressions: Chest X-Ray 09/08/20 21:55 IMPRESSION: Cardiomegaly with mild interstitial prominence, small bibasilar effusions and adjacent airspace opacities. copyright 2011 [employer]- All Rights Reserved Assessment and Plan - Diagnosis (1) Respiratory failure Qualifiers: Chronicity: unspecified Respiratory failure complication: hypoxia and hypercapnia Qualified Code(s): J96.91 - Respiratory failure, unspecified with hypoxia; J96.92 - Respiratory failure, unspecified with hypercapnia Is this a current diagnosis for this admission?: Yes Plan: 09/09 The patient has what appears to be acute on chronic hypercarbic, hypoxemic respiratory failure. He is on BIPAP. Will be repeating ABG to keep tabs on him. He had an elevated WBC and was started empirically on broad spectrum abx therapy. 09/10 the patient is more awake. New ABG pending. The vitals are stable Unclear at this point why thepatient developed acute hypercapneic failure. The patient did have an elevated WBC. Unclear if he had a basilar pneumonia. UA was unremarkable Critical Time Critical Time (minutes): 20 Level of Care: ICU -: 1. The care of a critical patient is a dynamic process. This note is a asset protection representative synopsis but static in nature. The timeframe for treatments given in order is not necessarily the actual time these treatments may have been done. 2. This patient requires critical care secondary to ongoing requirements for th erapy not offered or safe outside the critical care environment. Transfer to a lower level of care will result in altered life or limb morbidity and mortality. 3. Multidisciplinary rounds completed. 4. ABCDE bundle addressed.
--- NOTE | 2020-09-10 09:59 | RADIOLOGY REPORT (SQ) ---
EXAM DESCRIPTION: CHEST SINGLE VIEW IMAGES COMPLETED DATE/TIME: 09/10/2020 9:50 am REASON FOR STUDY: ? pneumonia COMPARISON: AP view of the chest from 09/08/2020. EXAM PARAMETERS: NUMBER OF VIEWS: One view. TECHNIQUE: An AP view of the chest was obtained. RADIATION DOSE: NA LIMITATIONS: None. FINDINGS: LUNGS AND PLEURA: No consolidation, pleural effusion or pneumothorax. MEDIASTINUM AND HILAR STRUCTURES: No mediastinal or hilar contour abnormality. HEART AND VASCULAR STRUCTURES: The cardiac silhouette is enlarged. BONES: No acute findings. HARDWARE: None in the chest. OTHER: No other finding. IMPRESSION: Cardiomegaly and low inspiratory lung volumes without a superimposed acute cardiopulmona ry process. TECHNICAL DOCUMENTATION: JOB ID: [id number] 2010 [employer]- All Rights Reserved Reading location - IP/workstation name: [email or web address]
[2020-09-10] MEDS: ENOXAPARIN SODIUM INJ 40 MG/0.4 ML DISP.SYRIN SUBCUT SCH (10:55)
[2020-09-10 11:39] LABS: ARTERIAL BLOOD BASE EXCESS 13.7 mmol/L; ARTERIAL BLOOD H2CO3 1.89 mmol/L (1.05-1.35); ARTERIAL BLOOD HCO3 41.8 mmol/L (20-24); ARTERIAL BLOOD O2 SATURATION 95.3 % (94-98); ARTERIAL BLOOD PCO2 62.9 mmHg (35-45); ARTERIAL BLOOD PH 7.44 (7.35-7.45); ARTERIAL BLOOD PO2 75.9 mmHg (80-100); ARTERIAL BLOOD TOTAL CO2 43.7 mmol/L (23-27)
[2020-09-10 11:40] LABS: ARTERIAL BLOOD FIO2 40%
[2020-09-10] MEDS ORDERED: IPRATROPIUM/ALBUTEROL 0.5-2.5 MG/3 ML AMPUL NEB SCH (14:00)
[2020-09-10] MEDS ORDERED: DEXTROSE 40% GEL 15 GM TUBE PO PRN ×2 (19:42)
[2020-09-10] MEDS ORDERED: GLUCAGON,HUMAN RECOMB 1 MG INJ IM PRN (19:42)
[2020-09-10] MEDS ORDERED: DEXTROSE 50%-WATER 25 GM/50 ML DISP.SYRIN IV PRN ×2 (19:42)
--- NOTE | 2020-09-10 19:57 | Progress Note ---
Provider Note Provider Note: Patient is a 65-year-old male with a past medical history of hypertension, hyperlipidemia, insulin-dependent diabetes mellitus, morbid obesity, and tobacco dependence with continuous use who was admitted 09/09/2020 by the guest services representative for acute hypercapnic and hypoxic respiratory failure multifactorial secondary to COPD, morbid obesity, MAURISIO, likely obesity hypoventilation syndrome, and possible CHF exacerbation. The patient was not intubated; supported by BiPAP only. Acidosis has resolved, PCO2 has decreased from 138.9-62.9. He is maintaining oxygen saturations on nasal cannula while awake and utilizing BiPAP nightly. He is downgraded to the telemetry floor and services transferred to the hospital service. Nursing notes, vital signs, laboratory results, imaging studies, H&P/progress notes, and orders reviewed. Agree with the plan as established by the previous provider. In addition, the patient's home medications have been reconciled and continued as appropriate. Patient is placed on Accu-Cheks before meals and at bedtime with sliding scale insulin. Incentive spirometer and flutter valve have been requested. He is fluid restricted to 2 L daily. Have requested daily weights and strict I&O's. Echocardiogram pending. Have requested physical therapy evaluation. Patient may benefit from home heal th services. Registered dietitian and patient educator consult requested.
[2020-09-10] MEDS: CEFTRIAXONE 1 GM/D5W RTU 1 GM/50 ML RTUPB IV SCH (23:02)
[2020-09-10] MEDS: ATORVASTATIN CALCIUM 40 MG TABLET PO SCH (23:02)
[2020-09-10] MEDS: INSULIN LISPRO 100 UNIT/ML 3 ML VIAL SUBCUT SCH (23:02)
[2020-09-10] MEDS: AZITHROMYCIN 500 MG in DEXTROSE 5%-WATER 250 ML IV SCH (23:16)
[2020-09-11] MEDS: FUROSEMIDE INJ/PF 40 MG/4 ML SDV IV SCH ×2 (06:33→17:30)
[2020-09-11] MEDS: PANTOPRAZOLE SODIUM 40 MG TABLET.DR PO SCH (06:38)
[2020-09-11 06:54] LABS: ABSOLUTE LYMPHOCYTES (AUTO) 1.6 10^3/uL (0.5-4.7); ABSOLUTE MONOCYTES (AUTO) 1.5 10^3/uL (0.1-1.4); ABSOLUTE NEUT (AUTO) 7.7 10^3/uL (1.7-8.2); BASOPHILS % (AUTO) 0.1 % (0-2); EOSINOPHILS % (AUTO) 0.1 % (0-6); HEMATOCRIT 49.3 % (37.9-51.0); HEMOGLOBIN 16.6 g/dL (13.5-17.0); LYMPHOCYTES % (AUTO) 14.7 % (13-45); MEAN CORPUSCULAR HEMOGLOBIN 33.4 pg (27.0-33.4); MEAN CORPUSCULAR HGB CONC 33.7 g/dL (32.0-36.0); MEAN CORPUSCULAR VOLUME 99 fl (80-97); MONOCYTES % (AUTO) 13.6 % (3-13); PLATELET COUNT 188 10^3/uL (150-450); RED BLOOD COUNT 4.98 10^6/uL (4.35-5.55); RED CELL DISTRIBUTION WIDTH 14.8 % (11.5-14.0); SEGMENTED NEUTROPHILS % (AUTO) 71.5 % (42-78); TOTAL CELLS COUNTED % (AUTO) 100 %; WHITE BLOOD COUNT 10.8 10^3/uL (4.0-10.5)
[2020-09-11 07:17] LABS: BLOOD UREA NITROGEN 42 mg/dL (7-20); CALCIUM 8.8 mg/dL (8.4-10.2); CHLORIDE 87 mmol/L (98-107); GLUCOSE 195 mg/dL (75-110); POTASSIUM 3.9 mmol/L (3.6-5.0)
[2020-09-11 07:23] LABS: ANION GAP 10 (5-19); CARBON DIOXIDE 39 mmol/L (22-30)
[2020-09-11] MEDS: IPRATROPIUM/ALBUTEROL 0.5-2.5 MG/3 ML AMPUL NEB SCH ×4 (08:05→21:08)
[2020-09-11] MEDS: INSULIN LISPRO 100 UNIT/ML 3 ML VIAL SUBCUT SCH ×4 (08:11→21:58)
[2020-09-11] MEDS ORDERED: (PENDING PHARMACY ID) (Lisinopril [Zestril] 40 MG Tablet) PO SCH (10:00)
[2020-09-11] MEDS ORDERED: ATENOLOL 100 MG PO SCH (10:00)
[2020-09-11] MEDS: ASPIRIN 81 MG TABLET, ENT COATED PO SCH (11:02)
[2020-09-11] MEDS: ATENOLOL 50 MG TABLET PO SCH (11:02)
[2020-09-11] MEDS: LISINOPRIL 10 MG TABLET PO SCH (11:02)
[2020-09-11] MEDS: ENOXAPARIN SODIUM INJ 40 MG/0.4 ML DISP.SYRIN SUBCUT SCH (11:02)
--- NOTE | 2020-09-11 17:01 | PDOC PROGRESS REPORT ---
Subjective Date:: 09/11/20 Subjective:: Patient feels much better. He is ambulating and states his breathing is improve d. Reason For Visit: RESPIRATORY FAILURE Physical Exam Vital Signs: Temp Pulse Resp BP Pulse Ox 98.1 F 64 18 134/60 H 94 09/11/20 10:00 09/11/20 16:07 09/11/20 16:07 09/11/20 08:00 09/11/20 16:07 Intake & Output 09/10/20 09/11/20 09/12/20 06:59 06:59 06:59 Intake Total 314 1610 Output Total 2715 4175 Balance -2401 -2565 Weight 166 kg 166 kg General appearance: PRESENT: no acute distress, morbidly obese Head exam: PRESENT: atraumatic Eye exam: PRESENT: conjunctiva pink, EOMI, PERRLA. ABSENT: scleral icterus Ear exam: PRESENT: normal external ear exam Mouth exam: PRESENT: moist, tongue midline Neck exam: ABSENT: carotid bruit, JVD, lymphadenopathy, thyromegaly Respiratory exam: PRESENT: clear to auscultation alex, rhonchi - Occasional. ABSENT: rales, wheezes Cardiovascular exam: PRESENT: RRR. ABSENT: diastolic murmur, rubs, systolic murmur Pulses: PRESENT: normal dorsalis pedis pul Vascular exam: PRESENT: normal capillary refill GI/Abdominal exam: PRESENT: normal bowel sounds, soft. ABSENT: distended, guarding, mass, organolmegaly, rebound, tenderness Rectal exam: PRESENT: deferred Extremities exam: PRESENT: full ROM. ABSENT: calf tenderness, clubbing, pedal edema Neurological exam: PRESENT: alert, awake, oriented to person, oriented to place, oriented to time, oriented to situation, CN II-XII grossly intact. ABSENT: motor sensory deficit Psychiatric exam: PRESENT: appropriate affect, normal mood. ABSENT: homicidal ideation, suicidal ideation Skin exam: PRESENT: dry, intact, warm. ABSENT: cyanosis, rash Results Laboratory Results: 09/11/20 06:11 09/11/20 06:11 09/11/20 09/11/20 06:11 06:11 WBC 10.8 H RBC 4.98 Hgb 16.6 Hct 49.3 MCV 99 H MCH 33.4 MCHC 33.7 RDW 14.8 H Plt Count 188 Seg Neutrophils % 71.5 Sodium 135.7 L Potassium 3.9 Chloride 87 L Carbon Dioxide 39 H Anion Gap 10 BUN 42 H Creatinine 1.22 Est GFR ( Amer) > 60 Glucose 195 H Calcium 8.8 09/08/20 09/08/20 09/10/20 21:48 21:48 04:23 Creatine Kinase 37 L Troponin I 0.019 NT-Pro-B Natriuret Pep 1510 H 854 H 09/11/20 06:11 Creatine Kinase Troponin I NT-Pro-B Natriuret Pep 552 H Impressions: Chest X-Ray 09/10/20 08:15 IMPRESSION: Cardiomegaly and low inspiratory lung volumes without a superimposed acute cardiopulmonary process. Assessment and Plan - Diagnosis (1) Respiratory failure Qualifiers: Chronicity: unspecified Respiratory failure complication: hypoxia and hypercapnia Qualified Code(s): J96.91 - Respiratory failure, unspecified with hypoxia; J96.92 - Respiratory failure, unspecified with hypercapnia Is this a current diagnosis for this admission?: Yes (2) Acute and chronic respiratory failure Is this a current diagnosis for this admission?: Yes (3) COPD exacerbation Is this a current diagnosis for this admission?: Yes (4) Morbid obesity with BMI of 50.0-59.9, adult Is this a current diagnosis for this admission?: Yes - Plan Summary Summary: Patient was admitted with acute on chronic respiratory failure. Covid has been ruled out. It is felt to be due to COPD exacerbation as his initial PCO2 was markedly elevated at 140 with improvement on BiPAP currently at 62.9 with an initial pH of 7.1 and now at 7.4. Chest x-ray shows no acute findings. Echo is currently pending. Patient is currently on ceftriaxone and Zithromax but is on no steroids will monitor overnight and if he remains stable he probably can be discharged home in a.m. - Time Time Spent with patient: 15-24 minutes Anticipated Discharge Disposition: Home, Self Care Anticipated Discharge Timeframe: within 24 hours
[2020-09-11] MEDS: CEFTRIAXONE 1 GM/D5W RTU 1 GM/50 ML RTUPB IV SCH (21:57)
[2020-09-11] MEDS: ATORVASTATIN CALCIUM 40 MG TABLET PO SCH (21:57)
[2020-09-11] MEDS: AZITHROMYCIN 500 MG in DEXTROSE 5%-WATER 250 ML IV SCH (21:58)
[2020-09-12] MEDS: FUROSEMIDE INJ/PF 40 MG/4 ML SDV IV SCH (05:58)
[2020-09-12] MEDS: PANTOPRAZOLE SODIUM 40 MG TABLET.DR PO SCH (06:00)
[2020-09-12 06:41] LABS: ABSOLUTE EOSINOPHILS # (AUTO) 0.1 10^3/uL (0.0-0.6); ABSOLUTE LYMPHOCYTES (AUTO) 2.2 10^3/uL (0.5-4.7); ABSOLUTE MONOCYTES (AUTO) 1.5 10^3/uL (0.1-1.4); ABSOLUTE NEUT (AUTO) 5.1 10^3/uL (1.7-8.2); BASOPHILS % (AUTO) 0.3 % (0-2); EOSINOPHILS % (AUTO) 1.3 % (0-6); HEMATOCRIT 50.6 % (37.9-51.0); HEMOGLOBIN 16.5 g/dL (13.5-17.0); LYMPHOCYTES % (AUTO) 24.9 % (13-45); MEAN CORPUSCULAR HEMOGLOBIN 32.3 pg (27.0-33.4); MEAN CORPUSCULAR HGB CONC 32.7 g/dL (32.0-36.0); MEAN CORPUSCULAR VOLUME 99 fl (80-97); MONOCYTES % (AUTO) 16.4 % (3-13); PLATELET COUNT 133 10^3/uL (150-450); RED BLOOD COUNT 5.13 10^6/uL (4.35-5.55); RED CELL DISTRIBUTION WIDTH 14.5 % (11.5-14.0); SEGMENTED NEUTROPHILS % (AUTO) 57.1 % (42-78); TOTAL CELLS COUNTED % (AUTO) 100 %; WHITE BLOOD COUNT 8.9 10^3/uL (4.0-10.5)
[2020-09-12 07:10] LABS: BLOOD UREA NITROGEN 41 mg/dL (7-20); CALCIUM 8.6 mg/dL (8.4-10.2); CHLORIDE 83 mmol/L (98-107); GLUCOSE 151 mg/dL (75-110)
[2020-09-12 07:27] LABS: ANION GAP 9 (5-19)
[2020-09-12 07:28] LABS: CARBON DIOXIDE 43 mmol/L (22-30)
[2020-09-12] MEDS: IPRATROPIUM/ALBUTEROL 0.5-2.5 MG/3 ML AMPUL NEB SCH ×4 (08:32→21:06)
[2020-09-12] MEDS: ENOXAPARIN SODIUM INJ 40 MG/0.4 ML DISP.SYRIN SUBCUT SCH (09:08)
[2020-09-12] MEDS: LISINOPRIL 10 MG TABLET PO SCH (09:09)
[2020-09-12] MEDS: ASPIRIN 81 MG TABLET, ENT COATED PO SCH (09:10)
[2020-09-12] MEDS: ATENOLOL 50 MG TABLET PO SCH (09:10)
[2020-09-12] MEDS: INSULIN LISPRO 100 UNIT/ML 3 ML VIAL SUBCUT SCH ×4 (09:13→21:06)
--- NOTE | 2020-09-12 14:27 | XCELERA REPORT ---
[address] [address] Transthoracic Echocardiogram Report Name: JERMAINE CHRISTIANO Age: 65 yrs Gender: Male : 1955 Patient Status: Inpatient Patient Location: [address] [place] [address] Study Date: 09/10/2020 06:10 PM Height: 66 in Weight: 365 lb BSA: 2.6 m2 Procedure: A complete two-dimensional transthoracic echocardiogram was performed (2D, M-mode, spectral and color flow Doppler). The study was technically difficult with many images being suboptimal in quality. Reason For Study: ?CHF Ordering Physician: CHRISTIANO CALVERT Performed By: Ivy Davison Interpretation Summary FINDINGS: technically difficult. LEFT VENTRICLE: LV Systolic function: LVEF is felt to be at lower limit of normal at approximately 55%. LV Diastolic Function: Grade I diastolic dysfunction noted. Wall motion: not all wall segment were well visualised. Regional wall motion cannot be accurately commented upon. Left ventricular chamber size: is within normal limit. Left ventricular wall thickness: is increased indicative of Mild LVH. RIGHT VENTRICLE: RV systolic function: cannot be accurately commented upon. Right Ventricle Size: seems mildly dilated LEFT ATRIUM size: is mildly dilated. RIGHT ATRIUM size: is within normal limit. INTER ATRIAL SEPTUM: No definite atrial septal defect noted however a small PFO could be missed. AORTIC ROOT: seems to be within normal limits. ASCENDING AORTA: is not well visualized. INFERIOR VENA CAVA: mildly dilated but with normal respiratory variation. VALVES: MITRAL VALVE: Leaflets are mildly thickened. Mobility seems to be within normal limits. Mitral Regurgitation: Trace mitral regurgitation is noted. Mitral Stenosis: No mitral stenosis noted. Mitral valve prolapse: none noted. AORTIC VALVE: all leaflets not well visualised but with mild thickening and adequate excursion. Aortic stenosis: No aortic stenosis noted. Aortic regurgitation: No aortic incompetence noted. TRICUSPID VALVE: mobility and structures within normal limit. Tricuspid stenosis: no tricuspid stenosis noted. Tricuspid regurgitation: Trace tricuspid regurgitation noted. Estimated RVS : cannot be accurately commented upon but possibly at upper limit of normal. PULMONARY VALVE: was not well visualized but no significant abnormalities suspected. Pulmonary stenosis: no pulmonary stenosis noted. Pulmonary regurgitation: no significant pulmonary regurgitation noted. MASSES AND THROMBUS: No definite intracardiac thrombus or masses are noted. PERICARDIUM: No pericardial effusion was noted. IMPRESSION: 1. Low Normal LVEF. 2. Mild LVH noted. 3. Grade I Diastolic Dysfunction noted. 4. No significant valvular stenosis or regurgitation noted. 5. LA is mildly dilated. RV mildly dilated. IVC mildly dilated. 6. Echocardiogram was technically difficult therefore clinical correlation is requested. MMode/2D Measurements & Calculations RVDd: 3.6 cm LVIDd: 5.4 cm FS: 23.7 % Ao root diam: 3.3 cm IVSd: 1.6 cm LVIDs: 4.1 cm EDV(Teich): 143.4 ml Ao root area: 8.8 cm2 LVPWd: 1.2 cm ESV(Teich): 76.2 ml LA dimension: 3.8 cm EF(Teich): 46.9 % LVOT diam: 2.1 cm LVOT area: 3.5 cm2 Doppler Measurements & Calculations MV E max gloria: MV P1/2t max gloria: Ao V2 max: LV V1 max P.7 cm/sec 101.6 cm/sec 153.8 cm/sec 6.7 mmHg MV A max gloria: MV P1/2t: 75.8 msec Ao max PG: LV V1 max: 118.0 cm/sec MVA(P1/2t): 2.9 cm2 9.5 mmHg 129.3 cm/sec MV E/A: 0.85 MV dec slope: GEE(V,D): 2.9 cm2 392.7 cm/sec2 MV dec time: 0.22 sec PA V2 max: MV P1/2t-pr_phl: 83.9 cm/sec 75.8 msec PA max P.8 mmHg : CHRISTIANO CALVERT Shyamal
--- NOTE | 2020-09-12 15:31 | PDOC DISCHARGE SUMMARY ---
Impression - Admit/DC Date/PCP Admission Date/Primary Care Provider: 09/09/20 03:[facility] Discharge Date: 09/13/20 - Discharge Diagnosis (1) Respiratory failure Is this a current diagnosis for this admission?: Yes (2) Acute and chronic respiratory failure Is this a current diagnosis for this admission?: Yes (3) COPD exacerbation Is this a current diagnosis for this admission?: Yes (4) Morbid obesity with BMI of 50.0-59.9, adult Is this a current diagnosis for this admission?: Yes - Assessment Summary: Patient was admitted with acute on chronic respiratory failure. Covid has been ruled out. It is felt to be due to COPD exacerbation as his initial PCO2 was markedly elevated at 140 with improvement on BiPAP currently at 62.9 with an initial pH of 7.1 and now at 7.4. Chest x-ray shows no acute findings. Echo is currently pending. Patient was treated with ceftriaxone and Zithromax - Additional Information Resuscitation Status: Full Code Discharge Diet: Cardiac, Diabetic Discharge Activity: Activity As Tolerated, Balance Activity w/Rest, Weigh Daily [facility]errals[facility] [Primary Care Provider] - 09/13/20 9:20 am (09/13 @ 0920 Patient will make own appt.) Prescriptions: Azithromycin [Zithromax 250 mg Tablet] 500 mg PO QHS #5 tablet Hydrochlorothiazide [Hydrodiuril 12.5 mg Tablet] 25 mg PO DAILY #30 Home Medications: Amlodipine Besylate [Norvasc 5 mg Tablet] 5 mg PO DAILY 09/09/20 Aspirin [Adult Low Dose Aspirin EC] 81 mg PO DAILY 09/09/20 Atenolol 100 mg PO DAILY 09/09/20 Atorvastatin Calcium [Lipitor 40 mg Tablet] 40 mg PO QHS 09/09/20 Insulin Aspart [Novolog Flexpen] 15 units SQ BIDBS 09/09/20 Insulin Glargine,Hum.rec.anlog [Lantus Insulin 100 Unit/1 ml 10 ml] 70 units SQ BID 09/09/20 Lisinopril [Zestril] 40 mg PO DAILY 09/09/20 Azithromycin [Zithromax 250 mg Tablet] 500 mg PO QHS #5 tablet 09/12/20 Hydrochlorothiazide [Hydrodiuril 12.5 mg Tablet] 25 mg PO DAILY #30 11/19/20 History of Present Illiness History of Present Illness: CHRISTIANO DEAN is a 65 year old male Patient was admitted with chest pain and shortness of breath with bilateral lower extremity edema. He was found to be hypoxic and subsequently placed on BiPAP. He was initially admitted to the intensive care unit where he was monitored. Hospital Course Hospital Course: Patient was admitted to the intensive care unit where he was treated with nonrebreather mask and subsequently BiPAP. His initial PCO2 was about 135. It appears patient gradually improved and by the time he was moved out of the unit his PCO2 was down to around 65. He ruled out for COVID-19. He was treated with bronchodilators and he also received diuretics. Patient was also treated with antibiotics. Chest x-ray showed cardiomegaly with mild interstitial prominence with small bibasilar effusions. Initial BNP was elevated and echocardiogram done revealed ejection fraction of 55% with a grade 1 diastolic dysfunction. Patient has continued to improve on the medical unit. Patient was found to be hypoxemic with ambulation. His oxygen saturation dropped to 83% off oxygen and it improved to 94% with oxygen with ambulation and as such he will need home oxygen. This has been arranged for patient. He Is encouraged to continue with his CPAP at home and he is to follow-up with his primary care physician for any issues with his CPAP machine to ensure proper functioning Physical Exam Vital Signs: Temp Pulse Resp BP Pulse Ox 98.5 F 55 L 16 122/95 H 94 09/12/20 12:26 09/12/20 12:37 09/12/20 12:37 09/12/20 12:26 09/12/20 12:37 Intake & Output 09/11/20 09/12/20 09/13/20 06:59 06:59 06:59 Intake Total 1610 1797 716 Output Total 4175 3100 1150 Balance -2565 -1303 -434 Weight 166 kg 163.3 kg Temp Pulse Resp BP Pulse Ox 97.5 F 62 16 110/60 93 09/13/20 15:09 09/13/20 15:09 09/13/20 15:09 09/13/20 15:09 09/13/20 15:09 Intake & Output 09/12/20 09/13/20 09/14/20 06:59 06:59 06:59 Intake Total 1797 2346 716 Output Total 3100 3950 500 Balance -1303 -1604 216 Weight 163.3 kg 163.2 kg General appearance: PRESENT: no acute distress, morbidly obese, well-nourished Head exam: PRESENT: atraumatic, normocephalic Eye exam: PRESENT: conjunctiva pink, EOMI, PERRLA. ABSENT: scleral icterus Ear exam: PRESENT: normal external ear exam Mouth exam: PRESENT: tongue midline Neck exam: ABSENT: carotid bruit, JVD, lymphadenopathy, thyromegaly Respiratory exam: PRESENT: clear to auscultation alex. ABSENT: rales, rhonchi, wheezes Cardiovascular exam: PRESENT: RRR, +S1, +S2. ABSENT: diastolic murmur, rubs, systolic murmur Pulses: PRESENT: normal dorsalis pedis pul Vascular exam: PRESENT: normal capillary refill GI/Abdominal exam: PRESENT: normal bowel sounds, soft. ABSENT: distended, guarding, mass, organolmegaly, rebound, tenderness Rectal exam: PRESENT: deferred Extremities exam: PRESENT: full ROM. ABSENT: calf tenderness, clubbing, pedal edema Neurological exam: PRESENT: alert, awake, oriented to person, oriented to place, oriented to time, oriented to situation, CN II-XII grossly intact. ABSENT: motor sensory deficit Psychiatric exam: PRESENT: appropriate affect, normal mood. ABSENT: homicidal ideation, suicidal ideation Skin exam: PRESENT: dry, intact, warm, other - Chronic venous stasis and dermatitis. ABSENT: cyanosis, rash Results Laboratory Results: WBC 8.9 10^3/uL (4.0-10.5) 09/12/20 06:14 RBC 5.13 10^6/uL (4.35-5.55) 09/12/20 06:14 Hgb 16.5 g/dL (13.5-17.0) 09/12/20 06:14 Hct 50.6 % (37.9-51.0) 09/12/20 06:14 MCV 99 fl (80-97) H 09/12/20 06:14 MCH 32.3 pg (27.0-33.4) 09/12/20 06:14 MCHC 32.7 g/dL (32.0-36.0) 09/12/20 06:14 RDW 14.5 % (11.5-14.0) H 09/12/20 06:14 Plt Count 133 10^3/uL (150-450) L 09/12/20 06:14 Lymph % (Auto) 24.9 % (13-45) 09/12/20 06:14 Jerome % (Auto) 16.4 % (3-13) H 09/12/20 06:14 Eos % (Auto) 1.3 % (0-6) 09/12/20 06:14 Baso % (Auto) 0.3 % (0-2) 09/12/20 06:14 Absolute Neuts (auto) 5.1 10^3/uL (1.7-8.2) 09/12/20 06:14 Absolute Lymphs (auto) 2.2 10^3/uL (0.5-4.7) 09/12/20 06:14 Absolute Monos (auto) 1.5 10^3/uL (0.1-1.4) H 09/12/20 06:14 Absolute Eos (auto) 0.1 10^3/uL (0.0-0.6) 09/12/20 06:14 Absolute Basos (auto) 0.0 10^3/uL (0.0-0.2) 09/12/20 06:14 Total Counted 100 09/08/20 21:48 Seg Neutrophils % 57.1 % (42-78) 09/12/20 06:14 Seg Neuts % (Manual) 65 % (42-78) 09/08/20 21:48 Lymphocytes % (Manual) 26 % (13-45) 09/08/20 21:48 Monocytes % (Manual) 8 % (3-13) 09/08/20 21:48 Eosinophils % (Manual) 1 % (0-6) 09/08/20 21:48 Basophils % (Manual) 0 % (0-2) 09/08/20 21:48 Abs Neuts (Manual) 9.0 10^3/uL (1.7-8.2) H 09/08/20 21:48 Abs Lymphs (Manual) 3.6 10^3/uL (0.5-4.7) 09/08/20 21:48 Abs Monocytes (Manual) 1.1 10^3/uL (0.1-1.4) 09/08/20 21:48 Absolute Eos (Manual) 0.1 10^3/uL (0.0-0.6) 09/08/20 21:48 Abs Basophils (Manual) 0.0 10^3/uL (0.0-0.2) 09/08/20 21:48 Nucleated RBCs 2 /100 WBC (0) 09/08/20 21:48 Platelet Comment ADEQUATE 09/08/20 21:48 Polychromasia SLIGHT 09/08/20 21:48 Anisocytosis SLIGHT 09/08/20 21:48 Macrocytosis SLIGHT 09/08/20 21:48 Tear Drop Cells SLIGHT 09/08/20 21:48 Carbonic Acid 1.89 mmol/L (1.05-1.35) H 09/10/20 11:20 HCO3/H2CO3 Ratio 22:1 09/10/20 11:20 ABG pH 7.44 (7.35-7.45) 09/10/20 11:20 ABG pCO2 62.9 mmHg (35-45) H 09/10/20 11:20 ABG pO2 75.9 mmHg (80-100) L 09/10/20 11:20 ABG HCO3 41.8 mmol/L (20-24) H 09/10/20 11:20 ABG Total CO2 43.7 mmol/L (23-27) H 09/10/20 11:20 ABG O2 Saturation 95.3 % (94-98) 09/10/20 11:20 ABG Base Excess 13.7 mmol/L 09/10/20 11:20 FiO2 40% 09/10/20 11:20 Sodium 134.6 mmol/L (137-145) L 09/12/20 06:14 Potassium 4.0 mmol/L (3.6-5.0) 09/12/20 06:14 Chloride 83 mmol/L (98-107) L 09/12/20 06:14 Carbon Dioxide 43 mmol/L (22-30) H* 09/12/20 06:14 Anion Gap 9 (5-19) 09/12/20 06:14 BUN 41 mg/dL (7-20) H 09/12/20 06:14 Creatinine 1.15 mg/dL (0.52-1.25) 09/12/20 06:14 Est GFR ( Amer) > 60 (>60) 09/12/20 06:14 Est GFR (MDRD) Non-Af > 60 (>60) 09/12/20 06:14 Glucose 151 mg/dL (75-110) H 09/12/20 06:14 POC Glucose 147 mg/dL (70-110) H 09/12/20 11:46 Hemoglobin A1c % 8.6 % (4.7-6.0) H 09/11/20 06:11 Calcium 8.6 mg/dL (8.4-10.2) 09/12/20 06:14 Ionized Calcium Mei 1.10 mmol/L (1.14-1.30) L 09/10/20 09:06 Phosphorus 3.8 mg/dL (2.5-4.5) 09/10/20 04:23 Magnesium 2.0 mg/dL (1.6-2.3) 09/10/20 04:23 Total Bilirubin 0.7 mg/dL (0.2-1.3) 09/08/20 21:48 Direct Bilirubin 0.3 mg/dL (0.0-0.4) 09/08/20 21:48 Neonat Total Bilirubin Not Reportable 09/08/20 21:48 Neonat Direct Bilirubin Not Reportable 09/08/20 21:48 Neonat Indirect Bili Not Reportable 09/08/20 21:48 AST 42 U/L (17-59) 09/08/20 21:48 ALT 61 U/L (<50) H 09/08/20 21:48 Alkaline Phosphatase 175 U/L (38-126) H 09/08/20 21:48 Creatine Kinase 37 U/L (55-170) L 09/08/20 21:48 Troponin I 0.019 ng/mL 09/08/20 21:48 NT-Pro-B Natriuret Pep 312 pg/mL (<125) H 09/12/20 06:14 Total Protein 8.8 g/dL (6.3-8.2) H 09/08/20 21:48 Albumin 4.2 g/dL (3.5-5.0) 09/08/20 21:48 Urine Color RAFA 09/09/20 00:53 Urine Appearance SLIGHTLY-CLOUDY 09/09/20 00:53 Urine pH 5.0 (5.0-9.0) 09/09/20 00:53 Ur Specific [place] 1.029 09/09/20 00:53 Urine Protein >=500 mg/dL (NEGATIVE) H 09/09/20 00:53 Urine Glucose (UA) 50 mg/dL (NEGATIVE) H 09/09/20 00:53 Urine Ketones NEGATIVE mg/dL (NEGATIVE) 09/09/20 00:53 Urine Blood SMALL (NEGATIVE) H 09/09/20 00:53 Urine Nitrite NEGATIVE (NEGATIVE) 09/09/20 00:53 Urine Bilirubin NEGATIVE (NEGATIVE) 09/09/20 00:53 Urine Urobilinogen 4.0 mg/dL (<2.0) H 09/09/20 00:53 Ur Leukocyte Esterase NEGATIVE (NEGATIVE) 09/09/20 00:53 Urine WBC (Auto) 10 /HPF 09/09/20 00:53 Urine RBC (Auto) 1 /HPF 09/09/20 00:53 U Hyaline Cast (Auto) 24 /LPF 09/09/20 00:53 Squamous Epi Cells Auto <1 /HPF 09/09/20 00:53 Urine Mucus (Auto) RARE /LPF 09/09/20 00:53 Urine Ascorbic Acid 20 (NEGATIVE) H 09/09/20 00:53 COVID-19 Source See comment 09/09/20 04:25 COVID-19 (NISHI) Not Detected (Not Detect) 09/09/20 04:25 09/08/20 09/10/20 09/11/20 21:48 04:23 06:11 Troponin I 0.019 NT-Pro-B Natriuret Pep 1510 H 854 H 552 H 09/12/20 06:14 Troponin I NT-Pro-B Natriuret Pep 312 H Impressions: Chest X-Ray 09/08/20 21:55 IMPRESSION: Cardiomegaly with mild interstitial prominence, small bibasilar effusions and adjacent airspace opacities. copyright 2011 [employer]- All Rights Reserved Chest X-Ray 09/10/20 08:15 IMPRESSION: Cardiomegaly and low inspiratory lung volumes without a superimposed acute cardiopulmonary process. Plan Health Concerns: Proper use and maintenance of CPAP machine is essential and this should be followed up patient Time Spent: Greater than 30 Minutes Stroke Is this a Stroke Patient?: No Acute Heart Failure Is this a Heart Failure Patient?: No
--- NOTE | 2020-09-12 15:32 | PDOC PROGRESS REPORT ---
Subjective Date:: 09/12/20 Subjective:: Patient feels much better. He is ambulating and states his breathing is improve d. Ambulatory oxygen revealed a saturation of 83% and so it is felt that the patient needs to go home with oxygen. This moment this cannot be arranged until tomorrow as [facility]. Reason For Visit: RESPIRATORY FAILURE Physical Exam Vital Signs: Temp Pulse Resp BP Pulse Ox 98.5 F 55 L 16 122/95 H 94 09/12/20 12:26 09/12/20 12:37 09/12/20 12:37 09/12/20 12:26 09/12/20 12:37 Intake & Output 09/11/20 09/12/20 09/13/20 06:59 06:59 06:59 Intake Total 1610 1797 716 Output Total 4175 3100 1150 Balance -2565 -1303 -434 Weight 166 kg 163.3 kg General appearance: PRESENT: no acute distress, well-developed Head exam: PRESENT: atraumatic, normocephalic Eye exam: PRESENT: conjunctiva pink, EOMI, PERRLA. ABSENT: scleral icterus Ear exam: PRESENT: normal external ear exam Mouth exam: PRESENT: moist, tongue midline Neck exam: ABSENT: carotid bruit, JVD, lymphadenopathy, thyromegaly Respiratory exam: PRESENT: clear to auscultation alex, unlabored. ABSENT: rales, rhonchi, wheezes Cardiovascular exam: PRESENT: RRR, +S1, +S2. ABSENT: diastolic murmur, rubs, systolic murmur Pulses: PRESENT: normal dorsalis pedis pul Vascular exam: PRESENT: normal capillary refill GI/Abdominal exam: PRESENT: normal bowel sounds, soft. ABSENT: distended, guarding, mass, organolmegaly, rebound, tenderness Rectal exam: PRESENT: deferred Extremities exam: PRESENT: full ROM. ABSENT: calf tenderness, clubbing, pedal edema Neurological exam: PRESENT: alert, awake, oriented to person, oriented to place, oriented to time, oriented to situation, CN II-XII grossly intact. ABSENT: motor sensory deficit Psychiatric exam: PRESENT: appropriate affect, normal mood. ABSENT: homicidal ideation, suicidal ideation Skin exam: PRESENT: dry, intact, rash, warm, other - Chronic venous stasis. ABSENT: cyanosis Results Laboratory Results: 09/12/20 06:14 09/12/20 06:14 09/12/20 09/12/20 06:14 06:14 WBC 8.9 RBC 5.13 Hgb 16.5 Hct 50.6 MCV 99 H MCH 32.3 MCHC 32.7 RDW 14.5 H Plt Count 133 L Seg Neutrophils % 57.1 Sodium 134.6 L Potassium 4.0 Chloride 83 L Carbon Dioxide 43 H* Anion Gap 9 BUN 41 H Creatinine 1.15 Est GFR ( Amer) > 60 Glucose 151 H Calcium 8.6 09/08/20 09/08/20 09/10/20 21:48 21:48 04:23 Creatine Kinase 37 L Troponin I 0.019 NT-Pro-B Natriuret Pep 1510 H 854 H 09/11/20 09/12/20 06:11 06:14 Creatine Kinase Troponin I NT-Pro-B Natriuret Pep 552 H 312 H Impressions: Chest X-Ray 09/10/20 08:15 IMPRESSION: Cardiomegaly and low inspiratory lung volumes without a superimposed acute cardiopulmonary process. Assessment and Plan - Diagnosis (1) Respiratory failure Qualifiers: Chronicity: unspecified Respiratory failure complication: hypoxia and hypercapnia Qualified Code(s): J96.91 - Respiratory failure, unspecified with hypoxia; J96.92 - Respiratory failure, unspecified with hypercapnia Is this a current diagnosis for this admission?: Yes (2) Acute and chronic respiratory failure Is this a current diagnosis for this admission?: Yes (3) COPD exacerbation Is this a current diagnosis for this admission?: Yes (4) Morbid obesity with BMI of 50.0-59.9, adult Is this a current diagnosis for this admission?: Yes - Plan Summary Summary: Patient was admitted with acute on chronic respiratory failure. Covid has been ruled out. It is felt to be due to COPD exacerbation as his initial PCO2 was markedly elevated at 140 with improvement on BiPAP currently at 62.9 with an initial pH of 7.1 and now at 7.4. Chest x-ray shows no acute findings. Echo is currently pending. Patient was treated with ceftriaxone and Zithromax - Time Time Spent with patient: 15-24 minutes Medications reviewed and adjusted accordingly: Yes Anticipated Discharge Disposition: Home with Home Health Anticipated Discharge Timeframe: within 24 hours
[2020-09-12] MEDS: ATORVASTATIN CALCIUM 40 MG TABLET PO SCH (21:05)
[2020-09-12] MEDS: CEFTRIAXONE 1 GM/D5W RTU 1 GM/50 ML RTUPB IV SCH (21:05)
[2020-09-12] MEDS ORDERED: AZITHROMYCIN 250 MG TABLET PO SCH (22:00)
[2020-09-13] MEDS: PANTOPRAZOLE SODIUM 40 MG TABLET.DR PO SCH (05:04)
[2020-09-13] MEDS: INSULIN LISPRO 100 UNIT/ML 3 ML VIAL SUBCUT SCH ×3 (07:57→16:52)
[2020-09-13] MEDS: IPRATROPIUM/ALBUTEROL 0.5-2.5 MG/3 ML AMPUL NEB SCH ×3 (08:47→16:05)
[2020-09-13] MEDS ORDERED: HYDROCHLOROTHIAZIDE 25 MG TABLET PO SCH (10:00)
[2020-09-13] MEDS: ASPIRIN 81 MG TABLET, ENT COATED PO SCH (10:36)
[2020-09-13] MEDS: ATENOLOL 50 MG TABLET PO SCH (10:36)
[2020-09-13] MEDS: ENOXAPARIN SODIUM INJ 40 MG/0.4 ML DISP.SYRIN SUBCUT SCH (10:36)
[2020-09-13] MEDS: LISINOPRIL 10 MG TABLET PO SCH (10:36)
[2020-09-13 15:15] VITALS: BP 110/60
== END 2020-09-13 16:50 | disposition home health service (06) | DRG 189 ==
LOC: ER 21:14 → EH 09-09 03:23 → ICU 09-09 06:25 → 4S 09-10 18:04
PROVIDERS: ADMIT Family Medicine; ATTEND Internal Medicine
PROC: 5A09557 Assistance with Respiratory Ventilation, Greater than 96 Consecutive Hours, Continuous Positive Airway Pressure (ICD-10-PCS; principal; 2020-09-08)
PROC: B24BZZ4 Ultrasonography of Heart with Aorta, Transesophageal (ICD-10-PCS; 2020-09-12)
DX: J96.21 Acute and chronic respiratory failure with hypoxia (principal); J44.1 Chronic obstructive pulmonary disease with (acute) exacerbation; Z68.43 Body mass index [BMI] 50.0-59.9, adult; E66.2 Morbid (severe) obesity with alveolar hypoventilation; Z20.828 Contact with and (suspected) exposure to other viral communicable diseases; J96.22 Acute and chronic respiratory failure with hypercapnia; I10 Essential (primary) hypertension; E11.9 Type 2 diabetes mellitus without complications; E78.5 Hyperlipidemia, unspecified; Z79.4 Long term (current) use of insulin; Z79.899 Other long term (current) drug therapy; Z79.82 Long term (current) use of aspirin; Z99.81 Dependence on supplemental oxygen; Z87.891 Personal history of nicotine dependence
CPT/HCPCS: 36415; 36600; 71045; 80048; 80053; 81001; 82330; 82550; 82803; 82962; 83036; 83735; 83880; 84100; 84484; 85025; 87040; 87635; 93005; 93010; 93306; 94660; 94667; 94799; 96365; 96366; 96375; 99285; 99291; C9803; J0456; J0696; J1100; J1650; J1815; J1940; J3490; J7060

== ENCOUNTER 2020-10-20 21:55 | Inpatient (IN) | payer OTHER, MEDICARE ==
[2020-10-20 22:18] LABS: ARTERIAL BLOOD BASE EXCESS 8.6 mmol/L; ARTERIAL BLOOD H2CO3 3.54 mmol/L (1.05-1.35); ARTERIAL BLOOD HCO3 43.2 mmol/L (20-24); ARTERIAL BLOOD O2 SATURATION 92.1 % (94-98); ARTERIAL BLOOD PO2 82.1 mmHg (80-100); ARTERIAL BLOOD TOTAL CO2 46.8 mmol/L (23-27)
[2020-10-20 22:24] LABS: ARTERIAL BLOOD FIO2 40%
[2020-10-20 22:25] LABS: ARTERIAL BLOOD PCO2 117.5 mmHg (35-45); ARTERIAL BLOOD PH 7.18 (7.35-7.45)
[2020-10-20] MEDS ORDERED: NORMAL SALINE 1000 ML 1,000 ML IV PRN (22:32)
[2020-10-20 22:33] LABS: ABSOLUTE EOSINOPHILS # (AUTO) 0.1 10^3/uL (0.0-0.6); ABSOLUTE LYMPHOCYTES (AUTO) 2.2 10^3/uL (0.5-4.7); ABSOLUTE MONOCYTES (AUTO) 1.4 10^3/uL (0.1-1.4); ABSOLUTE NEUT (AUTO) 7.2 10^3/uL (1.7-8.2); BASOPHILS % (AUTO) 0.3 % (0-2); HEMATOCRIT 47.5 % (37.9-51.0); HEMOGLOBIN 16.1 g/dL (13.5-17.0); LYMPHOCYTES % (AUTO) 19.7 % (13-45); MEAN CORPUSCULAR HEMOGLOBIN 33.6 pg (27.0-33.4); MEAN CORPUSCULAR HGB CONC 33.8 g/dL (32.0-36.0); MEAN CORPUSCULAR VOLUME 99 fl (80-97); PLATELET COUNT 154 10^3/uL (150-450); RED BLOOD COUNT 4.79 10^6/uL (4.35-5.55); RED CELL DISTRIBUTION WIDTH 14.6 % (11.5-14.0); TOTAL CELLS COUNTED % (AUTO) 100 %
[2020-10-20 22:49] LABS: ALBUMIN 3.6 g/dL (3.5-5.0); ALKALINE PHOSPHATASE 145 U/L (38-126); ASPARTATE AMINO TRANSFERASE 41 U/L (17-59); BILIRUBIN,DIRECT 0.2 mg/dL (0.0-0.4); BILIRUBIN,TOTAL 0.9 mg/dL (0.2-1.3); BLOOD UREA NITROGEN 25 mg/dL (7-20); CALCIUM 8.9 mg/dL (8.4-10.2); CHLORIDE 89 mmol/L (98-107); GLUCOSE 132 mg/dL (75-110); POTASSIUM 4.6 mmol/L (3.6-5.0); TOTAL PROTEIN 7.6 g/dL (6.3-8.2)
--- NOTE | 2020-10-20 22:50 | ER Document Report ---
ED General - General Chief Complaint: Shortness Of Breath Stated Complaint: LOW O2,LOW BLOOD SUGAR Time Seen by Provider: 10/20/20 22:10 Primary Care Provider: VENUS CUEVAS [Primary Care Provider] - Follow up as needed TRAVEL OUTSIDE OF THE [place] IN LAST 30 DAYS: No - HPI Context: Chief Complaint: [low blood sugar, hypoxia] [This is a 65-year-old male with a history of COPD presents to the emergency department for evaluation of hypoglycemia and low oxygen saturations. Patient reportedly called EMS because he was having visual hallucinations. When EMS arrived, they found the patient lying in supine position and noted that his initial O2 sat was 68%. Exact information in terms of patient's home oxygen use is not exactly clear at this point but supposedly the patient has supposed to be using a CPAP machine at night and it was also reported that the patient supposed to be on 3 L nasal cannula. Patient was admitted on 09/09/2020 for acute respiratory failure, Covid was ruled out at the time, patient was initially started on BiPAP with a starting pH of 7.1 and a discharge pH of 7.4. Patient is diabetic and on insulin. EMS noted that the patient never complained of feeling short of breath. Patient states the visual hallucinations he was having have resolved since he arrived in the ED patient did receive glucagon in route. Patient's glucose level is now 132. ] History obtained from [patient] Symptoms began:[Approximately 1 hour prior to arrival] Onset: [Sudden] Timing: [Sudden] Quality: [Patient denies pain] Intensity: [0 out of 5] Location: [Visual, respiratory] Radiation: [Denies] [The pain does not migrate to a new location.] Aggravating factors: [none] Relieving factors: [none] [Denies] SOB [Denies] nausea [Denies] vomiting [Denies] sweats [Denies] fever [Denies] cough [Denies] calf or leg swelling or pain - Related Data Allergies/Adverse Reactions: No Known Allergies Allergy (Verified 12/19/17 12:35) Past Medical History - General Information source: Patient - Social History Smoking Status: Former Smoker Frequency of alcohol use: None Drug Abuse: None Family History: Reviewed & Not Pertinent - Past Medical History Cardiac Medical History: Reports: Hx Congestive Heart Failure, Hx Hypertension Pulmonary Medical History: Reports: Hx COPD Endocrine Medical History: Reports: Hx Diabetes Mellitus Type 2 Renal/ Medical History: Denies: Hx Peritoneal Dialysis Psychiatric Medical History: Denies: Hx Depression Review of Systems - Review of Systems Notes: Review of systems as below unless otherwise stated in HPI. CONSTITUTIONAL [No] fever, [No] chills. EYES [No] eye pain. ENT [No] URI symptoms, [No] sore throat, [No] ear pain. CARDIOVASCULAR [No] chest pain, [No] palpitations, [No] edema. RESPIRATORY [No] Cough, [No] SOB, [No] wheezing. GASTROINTESTINAL [No] abdominal pain, [No] nausea, [No] Diarrhea, [No] Vomiting, [No] constipation, [No] melena, [No] rectal bleeding. GENITOURINARY [No] dysuria, [No] urinary frequency, [No] hematuria, [No] urinary urgency MUSCULOSKELETAL [No] Back pain. SKIN [No] Rash. NEUROLOGIC [No] Headache, [No] recent seizures, [No] paralysis,[No] parathesias. Positive visual hallucinations ENDOCRINE [No] polyuria. HEMO/LYMPATIC [No] easy brusing PSYCHIATRIC [No] depression. Physical Exam - Vital signs Vitals: Pulse Ox 100 10/20/20 21:58 - Notes Notes: CONSTITUTIONAL [Vital signs reviewed, Patient appears comfortable, Alert and oriented X 3, Normal stature. Patient is morbidly obese. Patient is currently on BiPAP and seems to be tolerating it well.] HEAD [Atraumatic, Normocephalic.] EYES [Eyes are normal to inspection, No discharge from eyes, Extraocular muscles intact, Sclera are normal, Conjunctiva are normal.] ENT [External ears normal to inspection, Nose examination normal, Mouth normal to inspection.] NECK [Normal ROM, No jugular venous distention, No meningeal signs, ] RESPIRATORY CHEST [Chest is nontender, Breath sounds normal, No respiratory distress.] CARDIOVASCULAR [RRR, No murmurs, Normal S1 S2, No rub, No gallop.] ABDOMEN [Abdomen is nontender, No pulsatile masses, No other masses, Bowel sounds normal, No distension, No peritoneal signs, No hernias.] BACK [There is no CVA Tenderness, There is no tenderness to palpation, Normal inspection.] UPPER EXTREMITY [Inspection normal, No cyanosis, No clubbing, No edema, LOWER EXTREMITY 2+ pitting edema is present bilateral lower extremities. Appearance of skin is consistent with chronic venous stasis dermatitis in both lower extremities NEURO [No focal motor deficits, No focal sensory deficits, Speech normal.] SKIN [Skin is warm, Skin is dry, Skin is normal color with the exception of findings on bilateral lower extremities.] PSYCHIATRIC [Normal affect. ] Course - Re-evaluation Re-evalutation: 10/21/20 10:28 After multiple adjustments with the patient's BiPAP settings, patient's pH finally started to improve up to 7.23 and CO2 has come down from 1 32-93.6. Findings of ED MSE discussed with patient and recommendation for admission disc ussed with patient; he is agreeable to admission. - Vital Signs Vital signs: Temp Pulse Resp BP Pulse Ox 98.0 F 12 136/66 H 96 10/21/20 05:40 10/21/20 07:01 10/21/20 07:01 10/21/20 07:01 - Laboratory Results Result Diagrams: 10/20/20 22:15 10/20/20 22:15 Laboratory Results Interpreted: 10/20/20 10/20/20 10/20/20 22:10 22:15 22:15 WBC 11.0 H MCV 99 H MCH 33.6 H RDW 14.6 H Carbonic Acid 3.54 H ABG pH 7.18 L* ABG pCO2 117.5 H* ABG pO2 ABG HCO3 43.2 H ABG Total CO2 46.8 H ABG O2 Saturation 92.1 L Sodium 134.3 L Chloride 89 L Carbon Dioxide 43 H* Anion Gap 2 L BUN 25 H Glucose 132 H POC Glucose Alkaline Phosphatase 145 H NT-Pro-B Natriuret Pep Urine Protein Urine Glucose (UA) Urine Urobilinogen 10/20/20 10/20/20 10/21/20 22:15 22:30 00:19 WBC MCV MCH RDW Carbonic Acid ABG pH ABG pCO2 ABG pO2 ABG HCO3 ABG Total CO2 ABG O2 Saturation Sodium Chloride Carbon Dioxide Anion Gap BUN Glucose POC Glucose 152 H 115 H Alkaline Phosphatase NT-Pro-B Natriuret Pep 1610 H Urine Protein Urine Glucose (UA) Urine Urobilinogen 10/21/20 10/21/20 10/21/20 00:30 02:57 04:49 WBC MCV MCH RDW Carbonic Acid 3.82 H 3.91 H ABG pH 7.17 L* 7.18 L* ABG pCO2 127.0 H* 129.9 H* ABG pO2 60.4 L ABG HCO3 44.8 H 47.8 H ABG Total CO2 48.7 H 51.8 H ABG O2 Saturation 81.3 L 92.2 L Sodium Chloride Carbon Dioxide Anion Gap BUN Glucose POC Glucose Alkaline Phosphatase NT-Pro-B Natriuret Pep Urine Protein 100 H Urine Glucose (UA) 50 H Urine Urobilinogen 4.0 H 10/21/20 10/21/20 10/21/20 06:25 06:51 09:50 WBC MCV MCH RDW Carbonic Acid 3.97 H 2.82 H ABG pH 7.17 L* 7.23 L ABG pCO2 132.0 H* 93.6 H* ABG pO2 78.2 L 108.6 H ABG HCO3 47.0 H 38.3 H ABG Total CO2 51.0 H 41.2 H ABG O2 Saturation 90.4 L Sodium Chloride Carbon Dioxide Anion Gap BUN Glucose POC Glucose 112 H Alkaline Phosphatase NT-Pro-B Natriuret Pep Urine Protein Urine Glucose (UA) Urine Urobilinogen Critical Laboratory Results Reviewed: Yes Attending or Supervising Physician who Reviewed Labs: JOSE DENNIS IV - Radiology Results Critical Radiology Results Reviewed: No Critical Results Attending or Supervising Physician who Reviewed Radiology: JOSE DENNIS IV - EKG Interpretation by Me Additional EKG results interpreted by me: 10/20/20 23:09 EKG obtained on 10/20/2020 at 2209 hrs. was interpreted by this MD. Findings: Normal sinus rhythm, rate 69, borderline left axis deviation is present, SC interval appears to be within normal limits, P waves preceding QRS complexes, QRS complexes appear narrow, QTC is 433, there are no obvious patterns of ST segment elevation, depression or reciprocal changes seen to suggest acute myocardial ischemia or infarction. When compared to prior EKG from 09/08/2020 morphology of current EKG appears improved as the previous EKG showed PVCs and some bigeminy. Impression normal sinus rhythm with nonspecific ST segments. - Consults Dr. Rick Time consulted: 10:20 Reason for consultation: 10/21/20 10:30 Acute on chronic respiratory failure with hypercapnia and hypoxia Consulted provider: will come to ER Critical Care Note - Critical Care Note Total time excluding time spent on procedures (mins): 120 - Management of patient with acute on chronic respiratory failure with hypoxia and hypercapnia Discharge - Discharge Clinical Impression: Acute on chronic respiratory failure Qualifiers: Respiratory failure complication: hypoxia and hypercapnia Qualified Code(s): J96.21 - Acute and chronic respiratory failure with hypoxia Condition: Stable Disposition: ADMITTED INPATIENT Admitting Provider: Prabhjot (Hospitalist) Unit Admitted: [facility] - Follow up as needed
[2020-10-20 23:02] LABS: ANION GAP 2 (5-19); CARBON DIOXIDE 43 mmol/L (22-30)
--- NOTE | 2020-10-20 23:25 | RADIOLOGY REPORT (SQ) ---
EXAM DESCRIPTION: XR CHEST 1 VIEW COMPLETED DATE/TME: 10/20/2020 22:38 CLINICAL HISTORY: 65 years, Male, sob COMPARISON: September 10, 2000 NUMBER OF VIEWS: 1 TECHNIQUE: AP portable upright view of the chest was obtained at 10:34 PM. LIMITATIONS: None. FINDINGS: There is stable, mild cardiac enlargement. There is mild central vascular congestion. There is no airspace consolidation. There is no pleural effusion or pneumothorax. IMPRESSION: Stable cardiac enlargement. There is mild central vascular congestion. copyright 2011 [employer]- All Rights Reserved
[2020-10-21 00:47] LABS: ARTERIAL BLOOD BASE EXCESS 9.6 mmol/L; ARTERIAL BLOOD H2CO3 3.82 mmol/L (1.05-1.35); ARTERIAL BLOOD HCO3 44.8 mmol/L (20-24); ARTERIAL BLOOD O2 SATURATION 81.3 % (94-98); ARTERIAL BLOOD PO2 60.4 mmHg (80-100); ARTERIAL BLOOD TOTAL CO2 48.7 mmol/L (23-27)
[2020-10-21 00:48] LABS: ARTERIAL BLOOD FIO2 28%
[2020-10-21 00:56] LABS: ARTERIAL BLOOD PH 7.17 (7.35-7.45)
[2020-10-21 01:52] LABS: TROPONIN I 0.018 ng/mL
[2020-10-21 01:59] LABS: A TYPE INFLUENZA AG NEGATIVE (NEGATIVE); B INFLUENZA AG NEGATIVE (NEGATIVE)
[2020-10-21 03:50] LABS: APPEARANCE,URINE CLEAR; BILIRUBIN,URINE NEGATIVE (NEGATIVE); COLOR,URINE YELLOW; GLUCOSE, URINE 50 mg/dL (NEGATIVE); KETONES,URINE NEGATIVE (NEGATIVE); LEUKOCYTE ESTERASE,URINE NEGATIVE (NEGATIVE); NITRITE,URINE NEGATIVE (NEGATIVE); PROTEIN,URINE 100 mg/dL (NEGATIVE); URINE SPECIFIC GRAVITY 1.018
[2020-10-21 05:03] LABS: ARTERIAL BLOOD BASE EXCESS 12.5 mmol/L; ARTERIAL BLOOD H2CO3 3.91 mmol/L (1.05-1.35); ARTERIAL BLOOD HCO3 47.8 mmol/L (20-24); ARTERIAL BLOOD O2 SATURATION 92.2 % (94-98); ARTERIAL BLOOD PO2 83.4 mmHg (80-100); ARTERIAL BLOOD TOTAL CO2 51.8 mmol/L (23-27)
[2020-10-21 05:07] LABS: ARTERIAL BLOOD FIO2 45%; ARTERIAL BLOOD PCO2 129.9 mmHg (35-45); ARTERIAL BLOOD PH 7.18 (7.35-7.45)
--- NOTE | 2020-10-21 06:31 | EKG REPORT ---
SEVERITY:- BORDERLINE ECG - SINUS RHYTHM BORDERLINE LEFT AXIS DEVIATION POOR R WAVE PROGRESSION IN PRECORDIAL LEADS NONSPECIFIC IVCD : Confirmed by: Del Kennedy MD 21-Oct-2020 06:30:21
[2020-10-21 06:50] LABS: ARTERIAL BLOOD BASE EXCESS 11.6 mmol/L; ARTERIAL BLOOD H2CO3 3.97 mmol/L (1.05-1.35); ARTERIAL BLOOD O2 SATURATION 90.4 % (94-98); ARTERIAL BLOOD PO2 78.2 mmHg (80-100)
[2020-10-21 07:03] LABS: ARTERIAL BLOOD FIO2 45%
[2020-10-21 07:07] LABS: ARTERIAL BLOOD PH 7.17 (7.35-7.45)
[2020-10-21 10:13] LABS: ARTERIAL BLOOD BASE EXCESS 6.3 mmol/L; ARTERIAL BLOOD FIO2 45%; ARTERIAL BLOOD H2CO3 2.82 mmol/L (1.05-1.35); ARTERIAL BLOOD HCO3 38.3 mmol/L (20-24); ARTERIAL BLOOD O2 SATURATION 96.7 % (94-98); ARTERIAL BLOOD PH 7.23 (7.35-7.45); ARTERIAL BLOOD PO2 108.6 mmHg (80-100); ARTERIAL BLOOD TOTAL CO2 41.2 mmol/L (23-27)
[2020-10-21 10:15] LABS: ARTERIAL BLOOD PCO2 93.6 mmHg (35-45)
[2020-10-21] MEDS ORDERED: AZITHROMYCIN INJ 500 MG VIAL IV ONE (10:23)
[2020-10-21] MEDS ORDERED: FUROSEMIDE INJ/PF 40 MG/4 ML SDV IV ONE (10:23)
[2020-10-21] MEDS ORDERED: METHYLPREDNISOLONE INJ 125 MG/2 ML SDV IV ONE (10:23)
[2020-10-21] MEDS ORDERED: ACETAMINOPHEN 325 MG TABLET PO PRN (11:49)
[2020-10-21] MEDS ORDERED: ONDANSETRON HCL INJ/PF 4 MG/2 ML SDV IV PRN (11:49)
[2020-10-21 13:07] LABS: ABSOLUTE EOSINOPHILS # (AUTO) 0.1 10^3/uL (0.0-0.6); ABSOLUTE LYMPHOCYTES (AUTO) 2.6 10^3/uL (0.5-4.7); ABSOLUTE MONOCYTES (AUTO) 1.2 10^3/uL (0.1-1.4); ABSOLUTE NEUT (AUTO) 5.6 10^3/uL (1.7-8.2); BASOPHILS % (AUTO) 0.3 % (0-2); EOSINOPHILS % (AUTO) 0.8 % (0-6); HEMATOCRIT 45.3 % (37.9-51.0); HEMOGLOBIN 15.1 g/dL (13.5-17.0); LYMPHOCYTES % (AUTO) 26.8 % (13-45); MEAN CORPUSCULAR HEMOGLOBIN 33.5 pg (27.0-33.4); MEAN CORPUSCULAR HGB CONC 33.4 g/dL (32.0-36.0); MEAN CORPUSCULAR VOLUME 100 fl (80-97); PLATELET COUNT 141 10^3/uL (150-450); RED BLOOD COUNT 4.52 10^6/uL (4.35-5.55); RED CELL DISTRIBUTION WIDTH 15.2 % (11.5-14.0); SEGMENTED NEUTROPHILS % (AUTO) 59.1 % (42-78); TOTAL CELLS COUNTED % (AUTO) 100 %; WHITE BLOOD COUNT 9.5 10^3/uL (4.0-10.5)
[2020-10-21 13:35] LABS: ALBUMIN 3.2 g/dL (3.5-5.0); ALKALINE PHOSPHATASE 125 U/L (38-126); ASPARTATE AMINO TRANSFERASE 34 U/L (17-59); BILIRUBIN,DIRECT 0.3 mg/dL (0.0-0.4); BILIRUBIN,TOTAL 0.8 mg/dL (0.2-1.3); BLOOD UREA NITROGEN 29 mg/dL (7-20); CALCIUM 8.8 mg/dL (8.4-10.2); CHLORIDE 88 mmol/L (98-107); CREATINE KINASE 35 U/L (55-170); GLUCOSE 106 mg/dL (75-110); POTASSIUM 4.9 mmol/L (3.6-5.0); TOTAL PROTEIN 6.7 g/dL (6.3-8.2)
[2020-10-21 14:06] LABS: ANION GAP 2 (5-19); CARBON DIOXIDE 46 mmol/L (22-30)
[2020-10-21] MEDS: IPRATROPIUM/ALBUTEROL 0.5-2.5 MG/3 ML AMPUL NEB SCH ×3 (15:39→23:24)
--- NOTE | 2020-10-21 20:39 | PDOC H&P ---
History of Present Illness Admission Date/PCP: 10/21/20 10:55 [facility] Patient complains of: SOB History of Present Illness: CHRISTIANO DEAN is a 65 year old male with severe COPD on 2 L home O2 and MAURISIO on CPAP at night who presented with AMS. Patient reportedly called EMS because he was having visual hallucinations. When EMS arrived, they found the patient lying in supine position and noted that his initial O2 sat was 68% on RA. On arrival to the ED, he had acute on chronic hypoxic/hypercapnic respiratory failure and was placed on BIPAP. He denies feeling SOB more than usual. He denies cough, fever, sick contacts. He is quite debilitated at baseline and states that he can barely take a few steps (this is his normal state). Past Medical History Cardiac Medical History: Reports: Congestive Heart Failure, Hyperlipidema, Hypertension Pulmonary Medical History: Reports: Chronic Obstructive Pulmonary Disease (COPD), Sleep Apnea Endocrine Medical History: Reports: Diabetes Mellitus Type 2 Psychiatric Medical History: Denies: Depression Past Surgical History Past Surgical History: Reports: None Social History Information Source: Patient Lives with: Spouse/Significant other Smoking Status: Former Smoker Frequency of Alcohol Use: None Hx Recreational Drug Use: No Hx Prescription Drug Abuse: No - Advance Directive Resuscitation Status: Do Not Resuscitate Surrogate healthcare decision maker:: Family History Family History: Reviewed & Not Pertinent Parental Family History Reviewed: Yes Children Family History Reviewed: Yes Sibling(s) Family History Reviewed.: Yes Medication/Allergy Home Medications: Amlodipine Besylate [Norvasc 5 mg Tablet] 5 mg PO DAILY 09/09/20 Aspirin [Adult Low Dose Aspirin EC] 81 mg PO DAILY 09/09/20 Atenolol 100 mg PO DAILY 09/09/20 Atorvastatin Calcium [Lipitor 40 mg Tablet] 40 mg PO QHS 09/09/20 Insulin Aspart [Novolog Flexpen] 15 units SQ BIDBS 09/09/20 Insulin Glargine,Hum.rec.anlog [Lantus Insulin 100 Unit/1 ml 10 ml] 70 units SQ BID 09/09/20 Lisinopril [Zestril] 40 mg PO DAILY 09/09/20 Azithromycin [Zithromax 250 mg Tablet] 500 mg PO QHS #5 tablet 09/12/20 Hydrochlorothiazide [Hydrodiuril 12.5 mg Tablet] 25 mg PO DAILY #30 09/12/20 Allergies/Adverse Reactions: No Known Allergies Allergy (Verified 12/19/17 12:35) Review of Systems Constitutional: ABSENT: fever(s) Eyes: PRESENT: visual disturbances Nose, Mouth, and Throat: ABSENT: sore throat Cardiovascular: PRESENT: dyspnea on exertion, edema. ABSENT: chest pain, orthropnea, palpitations Respiratory: PRESENT: dyspnea. ABSENT: cough, sputum Gastrointestinal: ABSENT: abdominal pain, diarrhea, vomiting Genitourinary: ABSENT: dysuria Neurological: ABSENT: dizziness, frequent falls Physical Exam Vital Signs: Temp Pulse Resp BP Pulse Ox 98.0 F 14 121/71 96 10/21/20 05:40 10/21/20 11:19 10/21/20 11:19 10/21/20 11:19 Intake & Output 10/20/20 10/21/20 10/22/20 06:59 06:59 06:59 Weight 163.3 kg Results Laboratory Results: 10/20/20 22:15 10/20/20 22:15 10/20/20 10/20/20 10/20/20 22:10 22:15 22:15 WBC 11.0 H RBC 4.79 Hgb 16.1 Hct 47.5 MCV 99 H MCH 33.6 H MCHC 33.8 RDW 14.6 H Plt Count 154 Seg Neutrophils % 66.0 Carbonic Acid 3.54 H HCO3/H2CO3 Ratio 12:1 ABG pH 7.18 L* ABG pCO2 117.5 H* ABG pO2 82.1 ABG HCO3 43.2 H ABG O2 Saturation 92.1 L ABG Base Excess 8.6 FiO2 40% Sodium 134.3 L Potassium 4.6 Chloride 89 L Carbon Dioxide 43 H* Anion Gap 2 L BUN 25 H Creatinine 1.00 Est GFR ( Amer) > 60 Glucose 132 H Calcium 8.9 Total Bilirubin 0.9 AST 41 Alkaline Phosphatase 145 H Total Protein 7.6 Albumin 3.6 Urine Color Urine Appearance Urine pH Ur Specific Ethel Urine Protein Urine Glucose (UA) Urine Ketones Urine Blood Urine Nitrite Ur Leukocyte Esterase Urine WBC (Auto) Urine RBC (Auto) 10/21/20 10/21/20 10/21/20 00:30 02:57 04:49 WBC RBC Hgb Hct MCV MCH MCHC RDW Plt Count Seg Neutrophils % Carbonic Acid 3.82 H 3.91 H HCO3/H2CO3 Ratio 11:1 12:1 ABG pH 7.17 L* 7.18 L* ABG pCO2 127.0 H* 129.9 H* ABG pO2 60.4 L 83.4 ABG HCO3 44.8 H 47.8 H ABG O2 Saturation 81.3 L 92.2 L ABG Base Excess 9.6 12.5 FiO2 28% 45% Sodium Potassium Chloride Carbon Dioxide Anion Gap BUN Creatinine Est GFR ( Amer) Glucose Calcium Total Bilirubin AST Alkaline Phosphatase Total Protein Albumin Urine Color YELLOW Urine Appearance CLEAR Urine pH 5.0 Ur Specific Ethel 1.018 Urine Protein 100 H Urine Glucose (UA) 50 H Urine Ketones NEGATIVE Urine Blood NEGATIVE Urine Nitrite NEGATIVE Ur Leukocyte Esterase NEGATIVE Urine WBC (Auto) 2 Urine RBC (Auto) 1 10/21/20 10/21/20 06:25 09:50 WBC RBC Hgb Hct MCV MCH MCHC RDW Plt Count Seg Neutrophils % Carbonic Acid 3.97 H 2.82 H HCO3/H2CO3 Ratio 11:1 13:1 ABG pH 7.17 L* 7.23 L ABG pCO2 132.0 H* 93.6 H* ABG pO2 78.2 L 108.6 H ABG HCO3 47.0 H 38.3 H ABG O2 Saturation 90.4 L 96.7 ABG Base Excess 11.6 6.3 FiO2 45% 45% Sodium Potassium Chloride Carbon Dioxide Anion Gap BUN Creatinine Est GFR ( Amer) Glucose Calcium Total Bilirubin AST Alkaline Phosphatase Total Protein Albumin Urine Color Urine Appearance Urine pH Ur Specific Ethel Urine Protein Urine Glucose (UA) Urine Ketones Urine Blood Urine Nitrite Ur Leukocyte Esterase Urine WBC (Auto) Urine RBC (Auto) 10/20/20 22:15 Troponin I 0.018 NT-Pro-B Natriuret Pep 1610 H Impressions: Chest X-Ray 10/20/20 21:57 IMPRESSION: Stable cardiac enlargement. There is mild central vascular congestion. copyright 2011 [employer]- All Rights Reserved Assessment and Plan - Diagnosis (1) Acute on chronic diastolic CHF (congestive heart failure) Is this a current diagnosis for this admission?: Yes (2) Acute and chronic respiratory failure Qualifiers: Respiratory failure complication: hypoxia and hypercapnia Qualified Code(s): J96.21 - Acute and chronic respiratory failure with hypoxia; J96.22 - Acute and chronic respiratory failure with hypercapnia Is this a current diagnosis for this admission?: Yes (3) Bigeminy Is this a current diagnosis for this admission?: Yes (4) COPD exacerbation Is this a current diagnosis for this admission?: Yes (5) Morbid obesity with BMI of 50.0-59.9, adult Is this a current diagnosis for this admission?: Yes - Plan Summary Summary: CHRISTIANO DEAN is a 65 year old male with severe COPD on 2 L home O2 and MAURISIO on CPAP at night who presented with AMS. Patient reportedly called EMS because he was having visual hallucinations. He denies feeling SOB more than usual. He denies cough, fever, sick contacts. He is quite debilitated at baseline and states that he can barely take a few steps (this is his normal state). When EMS arrived, they found the patient lying in supine position and noted that his initial O2 sat was 68% on RA. On arrival to the ED, he had acute on chronic hypoxic/hypercapnic respiratory failure and was placed on BIPAP. CXR showed mild pulmonary vascular congestion. He was influenza/Covid negative. COPD exacerbation: started treatment with steroids, antibiotics and Duo-Nebs Acute on Chronic Hypoxic/Hypercapnic Resp Failure: improving on BIPAP. Wean as tolerated. Repeat ABG in morning. Elevated troponin: barely elevated to 0.01 and unchanged on repeat. Will stop checking. Likely very mild demand ischemia due to above. Continue telemetry. Acute on Chronic CHF EXacerbation: direusis with LAsix 40 mg IV daily - Time Time Spent with patient: 35 or more minutes Anticipated Discharge Disposition: Home with Home Health Anticipated Discharge Timeframe: within 72 hours
[2020-10-22] MEDS: IPRATROPIUM/ALBUTEROL 0.5-2.5 MG/3 ML AMPUL NEB SCH ×5 (04:13→19:49)
[2020-10-22] MEDS: PANTOPRAZOLE SODIUM 40 MG TABLET.DR PO SCH (06:05)
[2020-10-22 06:13] LABS: HEMATOCRIT 45.5 % (37.9-51.0); HEMOGLOBIN 15.4 g/dL (13.5-17.0); MEAN CORPUSCULAR HEMOGLOBIN 33.5 pg (27.0-33.4); MEAN CORPUSCULAR HGB CONC 33.8 g/dL (32.0-36.0); MEAN CORPUSCULAR VOLUME 99 fl (80-97); PLATELET COUNT 151 10^3/uL (150-450); RED CELL DISTRIBUTION WIDTH 14.8 % (11.5-14.0); WHITE BLOOD COUNT 8.3 10^3/uL (4.0-10.5)
[2020-10-22 06:50] LABS: CHOLESTEROL 143.56 mg/dL (0-200); TRIGLYCERIDES 112 mg/dL (<150)
[2020-10-22 07:01] LABS: DIRECT LDL 97 mg/dL (<100)
[2020-10-22] MEDS ORDERED: INFLUENZA QUAD (6MOS+) 2020-21 VAC 0.5 ML SYR IM ONE (08:00)
[2020-10-22 09:02] LABS: ARTERIAL BLOOD BASE EXCESS 13.8 mmol/L; ARTERIAL BLOOD H2CO3 2.67 mmol/L (1.05-1.35); ARTERIAL BLOOD HCO3 45.1 mmol/L (20-24); ARTERIAL BLOOD O2 SATURATION 93.3 % (94-98); ARTERIAL BLOOD PH 7.33 (7.35-7.45); ARTERIAL BLOOD PO2 75.6 mmHg (80-100); ARTERIAL BLOOD TOTAL CO2 47.9 mmol/L (23-27)
[2020-10-22 09:04] LABS: ARTERIAL BLOOD FIO2 40%
[2020-10-22 09:05] LABS: ARTERIAL BLOOD PCO2 88.6 mmHg (35-45)
[2020-10-22 09:29] LABS: BLOOD UREA NITROGEN 32 mg/dL (7-20); CALCIUM 8.8 mg/dL (8.4-10.2); CHLORIDE 88 mmol/L (98-107); GLUCOSE 177 mg/dL (75-110); POTASSIUM 4.3 mmol/L (3.6-5.0)
[2020-10-22 09:36] LABS: ANION GAP 9 (5-19); CARBON DIOXIDE 38 mmol/L (22-30)
[2020-10-22] MEDS: AZITHROMYCIN 250 MG TABLET PO SCH (09:41)
[2020-10-22] MEDS: PREDNISONE 20 MG TABLET PO SCH (09:41)
[2020-10-22] MEDS: ENOXAPARIN SODIUM INJ 40 MG/0.4 ML DISP.SYRIN SUBCUT SCH (09:41)
[2020-10-22 13:41] LABS: BLOOD UREA NITROGEN 34 mg/dL (7-20); CALCIUM 8.8 mg/dL (8.4-10.2); CHLORIDE 85 mmol/L (98-107); GLUCOSE 194 mg/dL (75-110)
[2020-10-22 13:59] LABS: ANION GAP 6 (5-19)
[2020-10-22 14:30] LABS: CARBON DIOXIDE 44 mmol/L (22-30)
--- NOTE | 2020-10-22 18:47 | PDOC PROGRESS REPORT ---
Subjective Date:: 10/22/20 Subjective:: NAEO. He is feeling much better overall today. Denies SOB, PULIDO, visual hallucinations, chest pain. Reason For Visit: ACUTE ON CHRONIC RESPIRATORY FAILURE Physical Exam Vital Signs: Temp Pulse Resp BP Pulse Ox 97.9 F 69 16 137/72 H 96 10/22/20 12:38 10/22/20 16:22 10/22/20 16:22 10/22/20 12:38 10/22/20 16:22 Intake & Output 10/21/20 10/22/20 10/23/20 06:59 06:59 06:59 Output Total 600 Balance -600 Weight 163.3 kg 161.3 kg General appearance: PRESENT: no acute distress, cooperative, morbidly obese Eye exam: ABSENT: scleral icterus Mouth exam: PRESENT: moist Throat exam: ABSENT: post pharyngeal erythema Neck exam: ABSENT: JVD Respiratory exam: PRESENT: crackles, prolonged expiratory phas, wheezes Cardiovascular exam: PRESENT: RRR GI/Abdominal exam: PRESENT: distended, normal bowel sounds, soft. ABSENT: firm, guarding, rebound, rigid, tenderness Extremities exam: PRESENT: pedal edema Neurological exam: PRESENT: alert, awake, oriented to person, oriented to place, oriented to time, oriented to situation Psychiatric exam: PRESENT: appropriate affect Skin exam: ABSENT: jaundice Results Laboratory Results: 10/22/20 05:11 10/22/20 12:29 10/22/20 10/22/20 10/22/20 05:11 05:11 05:11 WBC 8.3 RBC 4.60 Hgb 15.4 Hct 45.5 MCV 99 H MCH 33.5 H MCHC 33.8 RDW 14.8 H Plt Count 151 Carbonic Acid HCO3/H2CO3 Ratio ABG pH ABG pCO2 ABG pO2 ABG HCO3 ABG O2 Saturation ABG Base Excess FiO2 Sodium 135.1 L Potassium 4.3 Chloride 88 L Carbon Dioxide 38 H Anion Gap 9 BUN 32 H Creatinine 1.03 Est GFR ( Amer) > 60 Glucose 177 H Calcium 8.8 Magnesium 2.3 Triglycerides 112 Cholesterol 143.56 LDL Cholesterol Direct 97 VLDL Cholesterol 22.0 HDL Cholesterol 31 L 10/22/20 10/22/20 08:33 12:29 WBC RBC Hgb Hct MCV MCH MCHC RDW Plt Count Carbonic Acid 2.67 H HCO3/H2CO3 Ratio 16:1 ABG pH 7.33 L ABG pCO2 88.6 H* ABG pO2 75.6 L ABG HCO3 45.1 H ABG O2 Saturation 93.3 L ABG Base Excess 13.8 FiO2 40% Sodium 134.7 L Potassium 4.0 Chloride 85 L Carbon Dioxide 44 H* Anion Gap 6 BUN 34 H Creatinine 0.99 Est GFR ( Amer) > 60 Glucose 194 H Calcium 8.8 Magnesium Triglycerides Cholesterol LDL Cholesterol Direct VLDL Cholesterol HDL Cholesterol 10/20/20 10/21/20 10/21/20 22:15 12:51 12:51 Creatine Kinase 35 L Troponin I 0.018 0.018 NT-Pro-B Natriuret Pep 1610 H 10/21/20 10/22/20 10/22/20 22:57 05:11 12:29 Creatine Kinase Troponin I 0.015 0.014 0.014 NT-Pro-B Natriuret Pep Impressions: Chest X-Ray 10/20/20 21:57 IMPRESSION: Stable cardiac enlargement. There is mild central vascular congestion. copyright 2011 [facility]- All Rights Reserved Assessment and Plan - Diagnosis (1) Acute on chronic diastolic CHF (congestive heart failure) Is this a current diagnosis for this admission?: Yes (2) Acute and chronic respiratory failure Qualifiers: Respiratory failure complication: hypoxia and hypercapnia Qualified Code(s): J96.21 - Acute and chronic respiratory failure with hypoxia; J96.22 - Acute and chronic respiratory failure with hypercapnia Is this a current diagnosis for this admission?: Yes (3) Bigeminy Is this a current diagnosis for this admission?: Yes (4) COPD exacerbation Is this a current diagnosis for this admission?: Yes (5) Morbid obesity with BMI of 50.0-59.9, adult Is this a current diagnosis for this admission?: Yes - Plan Summary Summary: CHRISTIANO DEAN is a 65 year old male with severe COPD on 2 L home O2 and MAURISIO on CPAP at night who presented with AMS. Patient reportedly called EMS because he was having visual hallucinations. He denies feeling SOB more than usual. He d enies cough, fever, sick contacts. He is quite debilitated at baseline and states that he can barely take a few steps (this is his normal state). When EMS arrived, they found the patient lying in supine position and noted that his initial O2 sat was 68% on RA. On arrival to the ED, he had acute on chronic hypoxic/hypercapnic respiratory failure and was placed on BIPAP. CXR showed mild pulmonary vascular congestion. He was influenza/Covid negative. COPD exacerbation: treatment with steroids, antibiotics and Duo-Nebs. Acute on Chronic Hypoxic/Hypercapnic Resp Failure: improving on BIPAP. Wean as tolerated. Repeat ABG in morning. Discharge with BIPAP (he was previously on CPAP with Home O2). Elevated troponin: barely elevated to 0.01 and unchanged on repeat. Likely very mild demand ischemia due to above. Continue telemetry. Acute on Chronic CHF Exacerbation: direusis with LAsix 40 mg IV daily - Time Time Spent with patient: 35 or more minutes Anticipated Discharge Disposition: Home with Home Health Anticipated Discharge Timeframe: within 24 hours
[2020-10-23] MEDS: IPRATROPIUM/ALBUTEROL 0.5-2.5 MG/3 ML AMPUL NEB SCH ×6 (00:31→19:43)
[2020-10-23] MEDS: PANTOPRAZOLE SODIUM 40 MG TABLET.DR PO SCH (05:29)
[2020-10-23 06:34] LABS: HEMATOCRIT 46.3 % (37.9-51.0); HEMOGLOBIN 15.5 g/dL (13.5-17.0); MEAN CORPUSCULAR HEMOGLOBIN 32.7 pg (27.0-33.4); MEAN CORPUSCULAR HGB CONC 33.5 g/dL (32.0-36.0); MEAN CORPUSCULAR VOLUME 98 fl (80-97); PLATELET COUNT 125 10^3/uL (150-450); RED BLOOD COUNT 4.74 10^6/uL (4.35-5.55); RED CELL DISTRIBUTION WIDTH 14.5 % (11.5-14.0); WHITE BLOOD COUNT 8.5 10^3/uL (4.0-10.5)
[2020-10-23 08:52] LABS: ARTERIAL BLOOD BASE EXCESS 15.3 mmol/L; ARTERIAL BLOOD H2CO3 2.57 mmol/L (1.05-1.35); ARTERIAL BLOOD O2 SATURATION 94.4 % (94-98); ARTERIAL BLOOD PH 7.35 (7.35-7.45); ARTERIAL BLOOD TOTAL CO2 48.7 mmol/L (23-27)
[2020-10-23 08:55] LABS: ARTERIAL BLOOD FIO2 40%; ARTERIAL BLOOD PCO2 85.3 mmHg (35-45)
[2020-10-23 08:56] LABS: BLOOD UREA NITROGEN 36 mg/dL (7-20); CALCIUM 8.9 mg/dL (8.4-10.2); CHLORIDE 88 mmol/L (98-107); GLUCOSE 136 mg/dL (75-110)
[2020-10-23 09:05] LABS: ANION GAP 5 (5-19)
[2020-10-23 09:36] LABS: CARBON DIOXIDE 44 mmol/L (22-30)
[2020-10-23] MEDS: ENOXAPARIN SODIUM INJ 40 MG/0.4 ML DISP.SYRIN SUBCUT SCH (09:55)
[2020-10-23] MEDS: PREDNISONE 20 MG TABLET PO SCH (09:55)
[2020-10-23] MEDS: AZITHROMYCIN 250 MG TABLET PO SCH (09:55)
[2020-10-23] MEDS ORDERED: ACETAZOLAMIDE SODIUM INJ 500 MG VIAL IV ONE (17:30)
[2020-10-23] MEDS ORDERED: ACETAZOLAMIDE 250 MG TABLET PO ONE (17:30)
[2020-10-23] MEDS ORDERED: FUROSEMIDE INJ/PF 100 MG/10 ML SDV IV ONE (17:30)
--- NOTE | 2020-10-23 19:56 | PDOC PROGRESS REPORT ---
Subjective Date:: 10/23/20 Subjective:: NAEO. He is feeling so much better! He is walking to and from the bathroom, feels that breathing is much improved and LE edema is improving. Reason For Visit: ACUTE ON CHRONIC RESPIRATORY FAILURE Physical Exam Vital Signs: Temp Pulse Resp BP Pulse Ox 97.9 F 74 16 138/71 H 94 10/23/20 11:47 10/23/20 16:05 10/23/20 16:05 10/23/20 11:47 10/23/20 16:05 Intake & Output 10/22/20 10/23/20 10/24/20 06:59 06:59 06:59 Intake Total 1415 720 Output Total 713 091 6859 Balance -600 815 -430 Weight 161.3 kg 165.3 kg General appearance: PRESENT: no acute distress, cooperative, morbidly obese Eye exam: ABSENT: scleral icterus Mouth exam: PRESENT: moist Throat exam: ABSENT: post pharyngeal erythema Neck exam: PRESENT: JVD Respiratory exam: PRESENT: clear to auscultation alex Cardiovascular exam: PRESENT: RRR GI/Abdominal exam: PRESENT: normal bowel sounds, soft. ABSENT: tenderness Extremities exam: PRESENT: +1 edema Psychiatric exam: PRESENT: appropriate affect Skin exam: ABSENT: jaundice Results Laboratory Results: 10/23/20 05:57 10/23/20 05:57 10/23/20 10/23/20 10/23/20 05:57 05:57 05:57 WBC 8.5 RBC 4.74 Hgb 15.5 Hct 46.3 MCV 98 H MCH 32.7 MCHC 33.5 RDW 14.5 H Plt Count 125 L Carbonic Acid HCO3/H2CO3 Ratio ABG pH ABG pCO2 ABG pO2 ABG HCO3 ABG O2 Saturation ABG Base Excess FiO2 Sodium 137.3 Potassium 4.0 Chloride 88 L Carbon Dioxide 44 H* Anion Gap 5 BUN 36 H Creatinine 1.05 Est GFR ( Amer) > 60 Glucose 136 H Calcium 8.9 Magnesium 2.3 10/23/20 08:30 WBC RBC Hgb Hct MCV MCH MCHC RDW Plt Count Carbonic Acid 2.57 H HCO3/H2CO3 Ratio 17:1 ABG pH 7.35 ABG pCO2 85.3 H* ABG pO2 79.0 L ABG HCO3 46.0 H ABG O2 Saturation 94.4 ABG Base Excess 15.3 FiO2 40% Sodium Potassium Chloride Carbon Dioxide Anion Gap BUN Creatinine Est GFR ( Amer) Glucose Calcium Magnesium 10/20/20 10/21/20 10/21/20 22:15 12:51 12:51 Creatine Kinase 35 L Troponin I 0.018 0.018 NT-Pro-B Natriuret Pep 1610 H 10/21/20 10/22/20 10/22/20 22:57 05:11 12:29 Creatine Kinase Troponin I 0.015 0.014 0.014 NT-Pro-B Natriuret Pep Impressions: Chest X-Ray 10/20/20 21:57 IMPRESSION: Stable cardiac enlargement. There is mild central vascular congestion. copyright 2010 [employer]- All Rights Reserved Assessment and Plan - Diagnosis (1) Acute on chronic diastolic CHF (congestive heart failure) Is this a current diagnosis for this admission?: Yes (2) Acute and chronic respiratory failure Qualifiers: Respiratory failure complication: hypoxia and hypercapnia Qualified Code(s): J96.21 - Acute and chronic respiratory failure with hypoxia; J96.22 - Acute and chronic respiratory failure with hypercapnia Is this a current diagnosis for this admission?: Yes (3) Bigeminy Is this a current diagnosis for this admission?: Yes (4) COPD exacerbation Is this a current diagnosis for this admission?: Yes (5) Morbid obesity with BMI of 50.0-59.9, adult Is this a current diagnosis for this admission?: Yes - Plan Summary Summary: CHRISTIANO DEAN is a 65 year old male with severe COPD on 2 L home O2 and MAURISIO on CPAP at night who presented with AMS. Patient reportedly called EMS because he was having visual hallucinations. He denies feeling SOB more than usual. He denies cough, fever, sick contacts. He is quite debilitated at baseline and states that he can barely take a few steps (this is his normal state). When EMS arrived, they found the patient lying in supine position and noted that his initial O2 sat was 68% on RA. On arrival to the ED, he had acute on chronic hypoxic/hypercapnic respiratory failure and was placed on BIPAP. CXR showed mild pulmonary vascular congestion. He was influenza/Covid negative. COPD exacerbation: improving with treatment with steroids, antibiotics and Duo-Nebs. Acute on Chronic Hypoxic/Hypercapnic Resp Failure: improved on BIPAP. Repeat ABG in morning. Discharge with BIPAP (he was previously on CPAP with Home O2). Elevated troponin: barely elevated to 0.01 and unchanged on repeat. Likely very mild demand ischemia due to above. Continue telemetry. Acute on Chronic CHF Exacerbation: direusis with Lasix/Diamox. Improving. - Time Time Spent with patient: 35 or more minutes Anticipated Discharge Disposition: Home with Home Health Anticipated Discharge Timeframe: within 24 hours
[2020-10-24] MEDS: IPRATROPIUM/ALBUTEROL 0.5-2.5 MG/3 ML AMPUL NEB SCH ×3 (00:06→08:03)
[2020-10-24] MEDS: PANTOPRAZOLE SODIUM 40 MG TABLET.DR PO SCH (05:40)
[2020-10-24 06:29] LABS: ARTERIAL BLOOD BASE EXCESS 14.5 mmol/L; ARTERIAL BLOOD FIO2 36%; ARTERIAL BLOOD H2CO3 1.95 mmol/L (1.05-1.35); ARTERIAL BLOOD HCO3 42.4 mmol/L (20-24); ARTERIAL BLOOD O2 SATURATION 96.2 % (94-98); ARTERIAL BLOOD PCO2 64.7 mmHg (35-45); ARTERIAL BLOOD PH 7.43 (7.35-7.45); ARTERIAL BLOOD PO2 83.9 mmHg (80-100); ARTERIAL BLOOD TOTAL CO2 44.4 mmol/L (23-27)
[2020-10-24] MEDS ORDERED: FUROSEMIDE INJ/PF 100 MG/10 ML SDV IV SCH (08:00)
[2020-10-24 09:18] VITALS: BP 129/76
[2020-10-24] MEDS: ENOXAPARIN SODIUM INJ 40 MG/0.4 ML DISP.SYRIN SUBCUT SCH (09:33)
[2020-10-24] MEDS: AZITHROMYCIN 250 MG TABLET PO SCH (09:33)
[2020-10-24] MEDS: PREDNISONE 20 MG TABLET PO SCH (09:33)
[2020-10-24] MEDS ORDERED: ACETAZOLAMIDE 250 MG TABLET PO SCH (11:00)
--- NOTE | 2020-10-24 19:18 | PDOC DISCHARGE SUMMARY ---
Impression - Admit/DC Date/PCP Admission Date/Primary Care Provider: 10/21/20 10:55 [facility] Discharge Date: 10/24/20 - Discharge Diagnosis (1) Acute on chronic diastolic CHF (congestive heart failure) Is this a current diagnosis for this admission?: Yes (2) Acute and chronic respiratory failure Is this a current diagnosis for this admission?: Yes (3) Bigeminy Is this a current diagnosis for this admission?: Yes (4) COPD exacerbation Is this a current diagnosis for this admission?: Yes (5) Morbid obesity with BMI of 50.0-59.9, adult Is this a current diagnosis for this admission?: Yes - Assessment Summary: CHRISTIANO DEAN is a 65 year old male with severe COPD on 2 L home O2 and MAURISIO on CPAP at night who presented with AMS. Patient reportedly called EMS because he was having visual hallucinations. He denies feeling SOB more than usual. He denies cough, fever, sick contacts. He is quite debilitated at baseline and states that he can barely take a few steps (this is his normal state). When EMS arrived, they found the patient lying in supine position and noted that his initial O2 sat was 68% on RA. On arrival to the ED, he had acute on chronic hypoxic/hypercapnic respiratory failure and was placed on BIPAP. CXR showed mild pulmonary vascular congestion. He was influenza/Covid negative. COPD exacerbation: resolved with treatment with steroids, antibiotics and Duo- Nebs. Acute on Chronic Hypoxic/Hypercapnic Resp Failure: improved on BIPAP. Discharged with home BIPAP therapy (he was previously on CPAP with Home O2). Elevated troponin: barely elevated to 0.01 and unchanged on repeat. Likely very mild demand ischemia due to above. Acute on Chronic CHF Exacerbation: resolved with diuresis with Lasix/Diamox. His home dose of Lasix was increased and he was prescribed Diamox on discharge. He is stable for discharge home with services and BIPAP. - Additional Information Resuscitation Status: Do Not Resuscitate Discharge Diet: Cardiac, Diabetic Discharge Activity: Activity As Tolerated, Balance Activity w/Rest, Weigh Daily Referrals: [facility] [Primary Care Provider] - 10/24/20 10:00 am (10/24/20 1000 called and left a message and providers office will contact pt with follow up ) Prescriptions: Prednisone [Deltasone 20 mg Tablet] 40 mg PO DAILY #6 tablet Acetazolamide [Diamox 250 mg Tab] 250 mg PO DAILY #30 tab Furosemide [Lasix 40 mg Tablet] 40 mg PO QAM #30 tablet Azithromycin [Zithromax 250 mg Tablet] 250 mg PO DAILY #3 tablet Home Medications: Aspirin [Adult Low Dose Aspirin EC] 81 mg PO DAILY 09/09/20 Atenolol 100 mg PO DAILY 09/09/20 Atorvastatin Calcium [Lipitor 40 mg Tablet] 40 mg PO QHS 09/09/20 Insulin Aspart [Novolog Flexpen] 15 units SQ BIDBS 09/09/20 Insulin Glargine,Hum.rec.anlog [Lantus Insulin 100 Unit/1 ml 10 ml] 70 units SQ BID 09/09/20 Lisinopril [Zestril] 40 mg PO DAILY 09/09/20 Acetazolamide [Diamox 250 mg Tab] 250 mg PO DAILY #30 tab 10/24/20 Azithromycin [Zithromax 250 mg Tablet] 250 mg PO DAILY #3 tablet 10/24/20 Furosemide [Lasix 40 mg Tablet] 40 mg PO QAM #30 tablet 10/24/20 Prednisone [Deltasone 20 mg Tablet] 40 mg PO DAILY #6 tablet 10/24/20 History of Present Illiness History of Present Illness: CHRISTIANO DEAN is a 65 year old male with severe COPD on 2 L home O2 and MAURISIO on CPAP at night who presented with AMS. Patient reportedly called EMS because he was having visual hallucinations. When EMS arrived, they found the patient lying in supine position and noted that his initial O2 sat was 68% on RA. On arrival to the ED, he had acute on chronic hypoxic/hypercapnic respiratory failure and was placed on BIPAP. He denies feeling SOB more than usual. He denies cough, fever, sick contacts. He is quite debilitated at baseline and states that he can barely take a few steps (this is his normal state). Physical Exam Vital Signs: Temp Pulse Resp BP Pulse Ox 98.0 F 92 18 129/76 H 96 10/24/20 10:00 10/24/20 09:16 10/24/20 09:16 10/24/20 09:16 10/24/20 09:16 Intake & Output 10/23/20 10/24/20 10/25/20 06:59 06:59 06:59 Intake Total 1415 720 Output Total 600 1750 Balance 815 -1030 Weight 165.3 kg 149.2 kg Results Laboratory Results: WBC 8.5 10^3/uL (4.0-10.5) 10/23/20 05:57 RBC 4.74 10^6/uL (4.35-5.55) 10/23/20 05:57 Hgb 15.5 g/dL (13.5-17.0) 10/23/20 05:57 Hct 46.3 % (37.9-51.0) 10/23/20 05:57 MCV 98 fl (80-97) H 10/23/20 05:57 MCH 32.7 pg (27.0-33.4) 10/23/20 05:57 MCHC 33.5 g/dL (32.0-36.0) 10/23/20 05:57 RDW 14.5 % (11.5-14.0) H 10/23/20 05:57 Plt Count 125 10^3/uL (150-450) L 10/23/20 05:57 Lymph % (Auto) 26.8 % (13-45) 10/21/20 12:51 [place] % (Auto) 13.0 % (3-13) 10/21/20 12:51 Eos % (Auto) 0.8 % (0-6) 10/21/20 12:51 Baso % (Auto) 0.3 % (0-2) 10/21/20 12:51 Absolute Neuts (auto) 5.6 10^3/uL (1.7-8.2) 10/21/20 12:51 Absolute Lymphs (auto) 2.6 10^3/uL (0.5-4.7) 10/21/20 12:51 Absolute Monos (auto) 1.2 10^3/uL (0.1-1.4) 10/21/20 12:51 Absolute Eos (auto) 0.1 10^3/uL (0.0-0.6) 10/21/20 12:51 Absolute Basos (auto) 0.0 10^3/uL (0.0-0.2) 10/21/20 12:51 Seg Neutrophils % 59.1 % (42-78) 10/21/20 12:51 Carbonic Acid 1.95 mmol/L (1.05-1.35) H 10/24/20 06:10 HCO3/H2CO3 Ratio 21:1 10/24/20 06:10 ABG pH 7.43 (7.35-7.45) 10/24/20 06:10 ABG pCO2 64.7 mmHg (35-45) H 10/24/20 06:10 ABG pO2 83.9 mmHg (80-100) 10/24/20 06:10 ABG HCO3 42.4 mmol/L (20-24) H 10/24/20 06:10 ABG Total CO2 44.4 mmol/L (23-27) H 10/24/20 06:10 ABG O2 Saturation 96.2 % (94-98) 10/24/20 06:10 ABG Base Excess 14.5 mmol/L 10/24/20 06:10 FiO2 36% 10/24/20 06:10 Sodium 137.3 mmol/L (137-145) 10/23/20 05:57 Potassium 4.0 mmol/L (3.6-5.0) 10/23/20 05:57 Chloride 88 mmol/L (98-107) L 10/23/20 05:57 Carbon Dioxide 44 mmol/L (22-30) H* 10/23/20 05:57 Anion Gap 5 (5-19) 10/23/20 05:57 BUN 36 mg/dL (7-20) H 10/23/20 05:57 Creatinine 1.05 mg/dL (0.52-1.25) 10/23/20 05:57 Est GFR ( Amer) > 60 (>60) 10/23/20 05:57 Est GFR (MDRD) Non-Af > 60 (>60) 10/23/20 05:57 Glucose 136 mg/dL (75-110) H 10/23/20 05:57 POC Glucose 125 mg/dL (70-110) H 10/23/20 07:48 Hemoglobin A1c % 7.2 % (4.7-6.0) H 10/22/20 05:11 Lactic Acid 1.0 mmol/L (0.7-2.1) 10/21/20 12:51 Calcium 8.9 mg/dL (8.4-10.2) 10/23/20 05:57 Magnesium 2.3 mg/dL (1.6-2.3) 10/23/20 05:57 Total Bilirubin 0.8 mg/dL (0.2-1.3) 10/21/20 12:51 Direct Bilirubin 0.3 mg/dL (0.0-0.4) 10/21/20 12:51 Neonat Total Bilirubin Not Reportable 10/21/20 12:51 Neonat Direct Bilirubin Not Reportable 10/21/20 12:51 Neonat Indirect Bili Not Reportable 10/21/20 12:51 AST 34 U/L (17-59) 10/21/20 12:51 ALT 33 U/L (<50) 10/21/20 12:51 Alkaline Phosphatase 125 U/L (38-126) 10/21/20 12:51 Creatine Kinase 35 U/L (55-170) L 10/21/20 12:51 Troponin I 0.014 ng/mL 10/22/20 12:29 NT-Pro-B Natriuret Pep 1610 pg/mL (<125) H 10/20/20 22:15 Total Protein 6.7 g/dL (6.3-8.2) 10/21/20 12:51 Albumin 3.2 g/dL (3.5-5.0) L 10/21/20 12:51 Triglycerides 112 mg/dL (<150) 10/22/20 05:11 Cholesterol 143.56 mg/dL (0-200) 10/22/20 05:11 LDL Cholesterol Direct 97 mg/dL (<100) 10/22/20 05:11 VLDL Cholesterol 22.0 mg/dL (10-31) 10/22/20 05:11 HDL Cholesterol 31 mg/dL (>40) L 10/22/20 05:11 Urine Color YELLOW 10/21/20 02:57 Urine Appearance CLEAR 10/21/20 02:57 Urine pH 5.0 (5.0-9.0) 10/21/20 02:57 Ur Specific [place] 1.018 10/21/20 02:57 Urine Protein 100 mg/dL (NEGATIVE) H 10/21/20 02:57 Urine Glucose (UA) 50 mg/dL (NEGATIVE) H 10/21/20 02:57 Urine Ketones NEGATIVE mg/dL (NEGATIVE) 10/21/20 02:57 Urine Blood NEGATIVE (NEGATIVE) 10/21/20 02:57 Urine Nitrite NEGATIVE (NEGATIVE) 10/21/20 02:57 Urine Bilirubin NEGATIVE (NEGATIVE) 10/21/20 02:57 Urine Urobilinogen 4.0 mg/dL (<2.0) H 10/21/20 02:57 Ur Leukocyte Esterase NEGATIVE (NEGATIVE) 10/21/20 02:57 Urine WBC (Auto) 2 /HPF 10/21/20 02:57 Urine RBC (Auto) 1 /HPF 10/21/20 02:57 U Hyaline Cast (Auto) 8 /LPF 10/21/20 02:57 Squamous Epi Cells Auto <1 /HPF 10/21/20 02:57 Urine Mucus (Auto) OCC /LPF 10/21/20 02:57 Urine Ascorbic Acid NEGATIVE (NEGATIVE) 10/21/20 02:57 COVID-19 Source Cancelled 10/21/20 01:23 COVID-19 (NISHI) Cancelled 10/21/20 01:23 Influenza A (Rapid) NEGATIVE (NEGATIVE) 10/21/20 01:23 Influenza A (RT-PCR) NEGATIVE (NEGATIVE) 10/21/20 01:23 Influenza B (Rapid) NEGATIVE (NEGATIVE) 10/21/20 01:23 Influenza B (RT-PCR) NEGATIVE (NEGATIVE) 10/21/20 01:23 RSV (RT-PCR) NEGATIVE (NEGATIVE) 10/21/20 01:23 SARS-CoV-2 Rap RNA(RT-PCR) NEGATIVE (NEGATIVE) 10/21/20 01:23 10/20/20 10/21/20 10/21/20 22:15 12:51 22:57 Troponin I 0.018 0.018 0.015 NT-Pro-B Natriuret Pep 1610 H 10/22/20 10/22/20 05:11 12:29 Troponin I 0.014 0.014 NT-Pro-B Natriuret Pep Impressions: Chest X-Ray 10/20/20 21:57 IMPRESSION: Stable cardiac enlargement. There is mild central vascular congestion. copyright 2011 [employer]- All Rights Reserved Stroke Is this a Stroke Patient?: No Acute Heart Failure Is this a Heart Failure Patient?: Yes Documentation of LVEF assessment?: Yes LVEF: LVEF Greater Than 40% Anticoagulant Therapy: N/A
== END 2020-10-24 11:06 | disposition home health service (06) | DRG 291 ==
LOC: ER 21:55 → EH 10-21 10:55 → 3S 10-21 18:32 → 5 10-23 16:56
PROVIDERS: ADMIT Hospitalist; ATTEND Hospitalist
PROC: 5A09457 Assistance with Respiratory Ventilation, 24-96 Consecutive Hours, Continuous Positive Airway Pressure (ICD-10-PCS; principal; 2020-10-20)
DX: I11.0 Hypertensive heart disease with heart failure (principal); J96.22 Acute and chronic respiratory failure with hypercapnia; J96.21 Acute and chronic respiratory failure with hypoxia; J44.1 Chronic obstructive pulmonary disease with (acute) exacerbation; Z68.43 Body mass index [BMI] 50.0-59.9, adult; I50.33 Acute on chronic diastolic (congestive) heart failure; J44.9 Chronic obstructive pulmonary disease, unspecified; E66.01 Morbid (severe) obesity due to excess calories; E78.5 Hyperlipidemia, unspecified; G47.30 Sleep apnea, unspecified; R77.8 Other specified abnormalities of plasma proteins; R00.8 Other abnormalities of heart beat; Z66 Do not resuscitate; Z79.4 Long term (current) use of insulin; Z99.81 Dependence on supplemental oxygen; Z79.82 Long term (current) use of aspirin; Z79.899 Other long term (current) drug therapy; Z20.828 Contact with and (suspected) exposure to other viral communicable diseases
CPT/HCPCS: 36415; 36600; 71045; 80048; 80053; 80061; 81001; 82550; 82803; 82962; 83036; 83605; 83735; 83880; 84484; 85025; 85027; 87040; 87804; 93005; 93010; 94640; 94660; 99285; 0241U; C9803; J0456; J1650; J1940; J2930; J3490; J7512